=== PATIENT | female | born 1965 | race Caucasian/White ===

== ENCOUNTER → 2016-11-18 | Outpatient (CLI) | payer BC ==
[~2016-11-18] MED LIST: ASPIR LOW81 MG PO; DITROPAN 5MG TAB5 MG PO; GLUCOTROL10 M2 PO; HCTZ 25MG25 MG PO; LANTUS100 U/ML SQ; LISINOPRIL20 MG PO; METFORMIN HCL500 M2 PO; OMEPRAZOLE40 MG PO; PAXIL 30MG30 MG PEG; TUSSIONEX PENN115 ML PO
== END ==
LOC: LAB 08:23
DX: E11.9 Type 2 diabetes mellitus without complications (principal); I10 Essential (primary) hypertension

== ENCOUNTER → 2017-08-05 | Outpatient (CLI) | payer BC ==
[2016-06-11 22:44] VITALS: BP 155/85
== END ==
LOC: RAD 15:41
DX: M17.0 Bilateral primary osteoarthritis of knee (principal)

== ENCOUNTER → 2017-11-11 | Outpatient (CLI) | payer BC ==
[2016-06-11 22:44] VITALS: BP 155/85
== END ==
LOC: MAMMO 09:15 → RAD 09:15
DX: Z12.31 Encounter for screening mammogram for malignant neoplasm of breast (principal)

== ENCOUNTER → 2018-08-31 | Outpatient (CLI) | payer BC ==
[2016-06-11 22:44] VITALS: BP 155/85
== END ==
LOC: LAB 12:00
DX: Z12.11 Encounter for screening for malignant neoplasm of colon (principal); Z00.00 Encounter for general adult medical examination without abnormal findings

== ENCOUNTER → 2018-12-15 | Outpatient (CLI) | payer BC | LOC: MAMMO 08:50 | DX: Z12.31 Encounter for screening mammogram for malignant neoplasm of breast (principal) ==

== ENCOUNTER → 2019-08-13 | Outpatient (CLI) | payer BC ==
[2016-06-11 22:44] VITALS: BP 155/85
== END ==
LOC: LAB 09:42
DX: L03.116 Cellulitis of left lower limb (principal)

== ENCOUNTER → 2019-11-02 | Outpatient (REF) ==
[2016-06-11 22:44] VITALS: BP 155/85
== END ==
LOC: LAB 10-20 17:22 → EDSTATUS 06:19 → LAB 17:22
DX: L03.116 Cellulitis of left lower limb (principal)

== ENCOUNTER 2020-11-14 13:59 | Emergency (ER) | payer OTHER ==
[~2020-11-14] VITALS: Wt 162.2 kg
[~2020-11-14 13:59] MED LIST changes: -ASPIR LOW81 MG PO; +ASPIRIN E.C. 8181 MG PO; +HYDROCHLOROTHIA1 T15 PO; +INSULIN 70/3100 U/ML SQ; -LANTUS100 U/ML SQ; -LISINOPRIL20 MG PO; -OMEPRAZOLE40 MG PO; -PAXIL 30MG30 MG PEG; +PAXIL30 M2 PO; +PRILOSEC OTC20 MG PO
[2020-11-14 15:19] LABS: BASO # 0.1 (0.02-0.10); EOS # 0.3 (0.04-0.40); EOS % 2.6 % (1.0-5.0); HEMATOCRIT 34.8 % (37.0-47.0); HEMOGLOBIN 10.5 g/dL (12.5-16.0); LYMPH# 2.6 (1.50-4.00); MEAN CELL VOLUME 83 fl (78-100); MEAN CORPUSCULAR HEMOGLOBIN 25 pg (27-31); MEAN CORPUSCULAR HGB CONC 30 g/dL (33-37); MONO # 0.9 (0.20-0.80); NEU # 7.7 (1.40-6.50); PLATELET COUNT 374 K/mm3 (130-400); RED BLOOD COUNT 4.18 M/mm3 (4.10-5.30); RED CELL DISTRIBUTION WIDTH 15.5 % (11.5-14.5); WHITE BLOOD COUNT 11.6 K/mm3 (4.8-10.8)
[2020-11-14 15:28] LABS: ALBUMIN 3.3 g/dL (3.5-5.0); POTASSIUM 4.6 mmol/L (3.5-5.1)
[2020-11-14 15:29] LABS: CALCIUM 9.5 mg/dL (8.3-10.5)
[2020-11-14 15:30] LABS: TOTAL PROTEIN 6.9 g/dL (6.4-8.3)
[2020-11-14 15:32] LABS: TOTAL BILIRUBIN 0.2 mg/dL (0.2-1.2)
[2020-11-14 15:42] LABS: D-DIMER 1.47 mg/L FEU (0.15-0.50)
[2020-11-14 15:43] LABS: TROPONIN-I 0.39 ng/mL (<0.030)
[2020-11-14 16:11] LABS: ERYTHROCYTE SEDIMENTATION RATE 41 mm/hr (0-30)
[2020-11-14 16:50] LABS: URINE APPEARANCE CLEAR; URINE COLOR YELLOW
[2020-11-14 16:51] LABS: URINE BILIRUBIN NEGATIVE (NEGATIVE); URINE BLOOD NEGATIVE (NEGATIVE); URINE GLUCOSE NEGATIVE (NEGATIVE); URINE KETONE NEGATIVE (NEGATIVE); URINE LEUKOCYTE ESTERASE NEGATIVE (NEGATIVE); URINE NITRATE NEGATIVE (NEGATIVE); URINE PROTEIN(semi-quant) TRACE mg/dL (NEGATIVE); URINE UROBILINOGEN NORMAL (NORMAL); URINE WBC 0-1 /hpf (0-3)
[2020-11-14] MEDS ORDERED: VITAMIN D250 MC1 (17:39)
[2020-11-14] MEDS ORDERED: INSULIN 70/3100 U/ML SQ (17:41)
[2020-11-14] MEDS ORDERED: ESTRACE2 M1 PO (17:50)
[2020-11-14] MEDS ORDERED: LASIX40 M1 PO (17:51)
[2020-11-14] MEDS ORDERED: DAILY VITE1 TA1 PO (17:52)
[2020-11-14] MEDS ORDERED: VITAMIN D310 MC1 (17:53)
[2020-11-14] MEDS ORDERED: ASCORBIC ACID500 M3 PO (17:53)
[2020-11-14] MEDS ORDERED: MAGNESIUM400 M1 (17:54)
[2020-11-14 18:31] VITALS: BP 177/69
== END 2020-11-14 18:37 | disposition short-term general hospital (02) ==
LOC: ED 13:59
PROVIDERS: Nurse Practitioner Family
DX: J45.901 Unspecified asthma with (acute) exacerbation (principal); I10 Essential (primary) hypertension; R74.8 Abnormal levels of other serum enzymes; E11.9 Type 2 diabetes mellitus without complications; F32.9 Major depressive disorder, single episode, unspecified; F41.9 Anxiety disorder, unspecified; Z90.710 Acquired absence of both cervix and uterus; Z90.49 Acquired absence of other specified parts of digestive tract; Z79.51 Long term (current) use of inhaled steroids; Z79.82 Long term (current) use of aspirin; Z79.4 Long term (current) use of insulin
CPT/HCPCS: J7030; Q9967

== ENCOUNTER → 2021-02-16 | Outpatient (CLI) | payer OTHER ==
[~2021-02-16] MED LIST changes: +AMLODIPINE BESYL5 MG PO; +ASCORBIC ACID500 M3 PO; +ATORVASTATIN CA80 MG PO; +BUMEX 1MG TA1 MG/TA1 PO; +CARVEDILOL25 MG PO; +CEFDINIR300 MG PO; +CEPHALEXIN500 M1 PO; +DAILY VITE1 TA1 PO; +ESTRACE2 M1 PO; +LASIX40 M1 PO; +LEADER C 250 MG1 TAB PO; +MAGNESIUM OXID400 M1 PO; +MAGNESIUM400 M1; +POTASSIUM CHLO10 ME8 PO; +PRAMIPEXOLE DI0.5 MG PO; +PROAIR HFA0.09 MG/AC IH; +TRULICITY0.75 MG/0. SQ; +TRULICITY1.5 MG/0.5 SC; +TYLENOL325 M1 PO; +VITAMIN D21250 MC1 PO; +VITAMIN D310 MC1; +VITAMIN D310 MC3 PO
== END ==
LOC: RAD 15:54
DX: M25.474 Effusion, right foot (principal); M25.475 Effusion, left foot; M79.89 Other specified soft tissue disorders; M79.672 Pain in left foot

== ENCOUNTER 2021-02-22 06:28 | Inpatient (IN) | payer OTHER ==
[~2021-02-22] VITALS: Ht 162.6 cm; Wt 147.0 kg
[~2021-02-22 06:28] MED LIST changes: -AMLODIPINE BESYL5 MG PO; -ATORVASTATIN CA80 MG PO; -BUMEX 1MG TA1 MG/TA1 PO; -CARVEDILOL25 MG PO; -CEFDINIR300 MG PO; -CEPHALEXIN500 M1 PO; -LEADER C 250 MG1 TAB PO; -MAGNESIUM OXID400 M1 PO; -POTASSIUM CHLO10 ME8 PO; -PRAMIPEXOLE DI0.5 MG PO; -PROAIR HFA0.09 MG/AC IH; -TRULICITY0.75 MG/0. SQ; -TRULICITY1.5 MG/0.5 SC; -TYLENOL325 M1 PO; -VITAMIN D310 MC3 PO
[2021-02-22 12:15] LABS: BASO # 0.05 (0.02-0.10); EOS # 0.17 (0.04-0.40); EOS % 1.4 % (1.0-5.0); HEMATOCRIT 33.2 % (37.0-47.0); LYMPH# 2.38 (1.50-4.00); MEAN CELL VOLUME 79 fl (78-100); MEAN CORPUSCULAR HEMOGLOBIN 24 pg (27-31); MEAN CORPUSCULAR HGB CONC 30 g/dL (33-37); NEU # 8.29 (1.40-6.50); PLATELET COUNT 315 K/mm3 (130-400); RED CELL DISTRIBUTION WIDTH 15.8 % (11.5-14.5); WHITE BLOOD COUNT 11.7 K/mm3 (4.8-10.8)
[2021-02-22 12:35] LABS: ALBUMIN 3.4 g/dL (3.5-5.0); POTASSIUM 4.7 mmol/L (3.5-5.1)
[2021-02-22 12:38] LABS: TOTAL PROTEIN 7.1 g/dL (6.4-8.3)
[2021-02-22 12:39] LABS: TOTAL BILIRUBIN 0.4 mg/dL (0.2-1.2)
[2021-02-22 12:44] LABS: MAGNESIUM 1.09 mg/dL (1.60-2.60)
[2021-02-22 14:12] VITALS: BP 99/62
[2021-02-22] MEDS ORDERED: TYLENOL325 M1 PO (14:19)
[2021-02-22] MEDS ORDERED: AMLODIPINE BESYL5 MG PO (14:20)
[2021-02-22] MEDS ORDERED: ATORVASTATIN CA80 MG PO (14:20)
[2021-02-22] MEDS ORDERED: PROAIR HFA0.09 MG/AC IH (14:20)
[2021-02-22] MEDS ORDERED: BUMEX 1MG TA1 MG/TA1 PO (14:21)
[2021-02-22] MEDS ORDERED: CARVEDILOL25 MG PO (14:21)
[2021-02-22] MEDS ORDERED: DITROPAN 5MG TAB5 MG PO (14:27)
[2021-02-22] MEDS ORDERED: POTASSIUM CHLO10 ME8 PO (14:30)
[2021-02-22] MEDS ORDERED: PRAMIPEXOLE DI0.5 MG PO (14:31)
[2021-02-22] MEDS ORDERED: TRULICITY1.5 MG/0.5 SC (14:32)
[2021-02-22] MEDS ORDERED: LEADER C 250 MG1 TAB PO (14:35)
[2021-02-22] MEDS ORDERED: VITAMIN D310 MC3 PO (14:40)
[2021-02-22 17:54] VITALS: BP 113/61
[2021-02-22 18:04] LABS: URINE APPEARANCE CLOUDY; URINE COLOR YELLOW
[2021-02-22 18:05] LABS: URINE BILIRUBIN 2+ (NEGATIVE); URINE BLOOD TRACE (NEGATIVE); URINE GLUCOSE NEGATIVE (NEGATIVE); URINE KETONE NEGATIVE (NEGATIVE); URINE LEUKOCYTE ESTERASE TRACE (NEGATIVE); URINE NITRATE NEGATIVE (NEGATIVE); URINE PROTEIN(semi-quant) TRACE mg/dL (NEGATIVE); URINE UROBILINOGEN NORMAL (NORMAL)
[2021-02-22 22:25] VITALS: BP 147/70
[2021-02-23] VITALS (7 sets, daily range): BP systolic 97–149; BP diastolic 65–74
[2021-02-23 07:33] LABS: BASO # 0.04 (0.02-0.10); EOS # 0.19 (0.04-0.40); EOS % 1.8 % (1.0-5.0); HEMOGLOBIN 10.3 g/dL (12.5-16.0); LYMPH# 2.33 (1.50-4.00); MEAN CELL VOLUME 79 fl (78-100); MEAN CORPUSCULAR HEMOGLOBIN 24 pg (27-31); MEAN CORPUSCULAR HGB CONC 30 g/dL (33-37); MEAN PLATELET VOLUME 9.3 fl (7.4-10.4); MONO # 0.92 (0.20-0.80); NEU # 6.77 (1.40-6.50); PLATELET COUNT 299 K/mm3 (130-400); RED BLOOD COUNT 4.32 M/mm3 (4.10-5.30); RED CELL DISTRIBUTION WIDTH 16.1 % (11.5-14.5); WHITE BLOOD COUNT 10.3 K/mm3 (4.8-10.8)
[2021-02-23 07:43] LABS: CALCIUM 9.1 mg/dL (8.3-10.5)
[2021-02-23 07:50] LABS: MAGNESIUM 1.02 mg/dL (1.60-2.60)
[2021-02-23] MEDS ORDERED: TRULICITY0.75 MG/0. SQ (14:01)
[2021-02-24 02:21] VITALS: BP 123/68
[2021-02-24 06:05] VITALS: BP 134/62
[2021-02-24 06:45] LABS: CALCIUM 9.2 mg/dL (8.3-10.5)
[2021-02-24 06:52] LABS: MAGNESIUM 1.45 mg/dL (1.60-2.60)
[2021-02-24 09:13] LABS: POTASSIUM 4.9 mmol/L (3.5-5.1)
[2021-02-24 10:00] VITALS: BP 93/58
[2021-02-24] MEDS ORDERED: BUMEX 1MG TA1 MG/TA1 PO (10:14)
[2021-02-24] MEDS ORDERED: MAGNESIUM OXID400 M1 PO (10:14)
[2021-02-24] MEDS ORDERED: CEFDINIR300 MG PO (10:17)
== END 2021-02-24 13:12 | disposition home or self-care (01) | DRG 300 ==
LOC: MED/SURG 06:28
PROVIDERS: ADMIT Internal Medicine
DX: I87.2 Venous insufficiency (chronic) (peripheral) (principal); L03.116 Cellulitis of left lower limb; Z68.43 Body mass index [BMI] 50.0-59.9, adult; L03.115 Cellulitis of right lower limb; I87.8 Other specified disorders of veins; I10 Essential (primary) hypertension; I25.2 Old myocardial infarction; I25.10 Atherosclerotic heart disease of native coronary artery without angina pectoris; J45.909 Unspecified asthma, uncomplicated; E11.9 Type 2 diabetes mellitus without complications; E66.01 Morbid (severe) obesity due to excess calories; G25.81 Restless legs syndrome; M17.10 Unilateral primary osteoarthritis, unspecified knee; K21.9 Gastro-esophageal reflux disease without esophagitis; Z79.82 Long term (current) use of aspirin; Z79.84 Long term (current) use of oral hypoglycemic drugs
CPT/HCPCS: J0696; J1650; J1815; J1940; J3475

== ENCOUNTER → 2021-05-11 | Outpatient (CLI) | payer OTHER ==
[~2021-05-11] MED LIST changes: +AMLODIPINE BESYL5 MG PO; +ATORVASTATIN CA80 MG PO; +BUMEX 1MG TA1 MG/TA1 PO; +CARVEDILOL25 MG PO; +CEFDINIR300 MG PO; +CEPHALEXIN500 M1 PO; +LEADER C 250 MG1 TAB PO; +MAGNESIUM OXID400 M1 PO; +POTASSIUM CHLO10 ME8 PO; +PRAMIPEXOLE DI0.5 MG PO; +PROAIR HFA0.09 MG/AC IH; +TRULICITY0.75 MG/0. SQ; +TRULICITY1.5 MG/0.5 SC; +TYLENOL325 M1 PO; +VITAMIN D310 MC3 PO
[2021-05-11 09:21] VITALS: BP 146/61
[2021-05-11 13:35] VITALS: BP 117/48
== END ==
LOC: AMSURD 09:01
DX: Z79.899 Other long term (current) drug therapy (principal)
CPT/HCPCS: J3475

== ENCOUNTER 2021-06-29 15:50 | Emergency (ER) | payer OTHER ==
[~2021-06-29] VITALS: Ht 162.6 cm; Wt 150.0 kg
[~2021-06-29 15:50] MED LIST changes: -CEPHALEXIN500 M1 PO
[2021-06-29 16:31] LABS: BASO # 0.05 (0.02-0.10); EOS % 0.9 % (1.0-5.0); HEMATOCRIT 36.6 % (37.0-47.0); MEAN CELL VOLUME 81 fl (78-100); MEAN CORPUSCULAR HEMOGLOBIN 24 pg (27-31); MEAN CORPUSCULAR HGB CONC 30 g/dL (33-37); MEAN PLATELET VOLUME 8.8 fl (7.4-10.4); MONO # 0.77 (0.20-0.80); NEU # 8.41 (1.40-6.50); PLATELET COUNT 303 K/mm3 (130-400); RED BLOOD COUNT 4.52 M/mm3 (4.10-5.30); WHITE BLOOD COUNT 11.5 K/mm3 (4.8-10.8)
[2021-06-29 16:40] LABS: ALBUMIN 3.3 g/dL (3.5-5.0); POTASSIUM 5.3 mmol/L (3.5-5.1)
[2021-06-29 16:41] LABS: CALCIUM 10.2 mg/dL (8.3-10.5)
[2021-06-29 16:42] LABS: TOTAL PROTEIN 6.8 g/dL (6.4-8.3)
[2021-06-29 16:44] LABS: TOTAL BILIRUBIN 0.4 mg/dL (0.2-1.2)
[2021-06-29] MEDS ORDERED: CEPHALEXIN500 M1 PO (18:55)
[2021-06-29 19:25] VITALS: BP 167/67
== END 2021-06-29 19:44 | disposition home or self-care (01) ==
LOC: ED 15:50
PROVIDERS: Nurse Practitioner
DX: L03.116 Cellulitis of left lower limb (principal); L03.115 Cellulitis of right lower limb; I25.10 Atherosclerotic heart disease of native coronary artery without angina pectoris; E11.65 Type 2 diabetes mellitus with hyperglycemia; I87.2 Venous insufficiency (chronic) (peripheral); Z79.84 Long term (current) use of oral hypoglycemic drugs; Z79.82 Long term (current) use of aspirin

== ENCOUNTER → 2021-07-05 | Outpatient (CLI) | payer OTHER ==
[~2021-07-05] MED LIST changes: +CEPHALEXIN500 M1 PO
[2021-07-05 11:34] LABS: BASO # 0.06 (0.02-0.10); EOS # 0.18 (0.04-0.40); EOS % 1.5 % (1.0-5.0); HEMATOCRIT 39.5 % (37.0-47.0); HEMOGLOBIN 11.5 g/dL (12.5-16.0); LYMPH# 2.64 (1.50-4.00); MEAN CELL VOLUME 83 fl (78-100); MEAN CORPUSCULAR HEMOGLOBIN 24 pg (27-31); MEAN CORPUSCULAR HGB CONC 29 g/dL (33-37); NEU # 8.09 (1.40-6.50); PLATELET COUNT 312 K/mm3 (130-400); RED BLOOD COUNT 4.75 M/mm3 (4.10-5.30); WHITE BLOOD COUNT 11.9 K/mm3 (4.8-10.8)
[2021-07-05 11:40] LABS: POTASSIUM 4.3 mmol/L (3.5-5.1)
[2021-07-05 11:41] LABS: ALBUMIN 3.6 g/dL (3.5-5.0)
[2021-07-05 11:43] LABS: TOTAL PROTEIN 7.2 g/dL (6.4-8.3)
[2021-07-05 11:51] LABS: MAGNESIUM 1.63 mg/dL (1.60-2.60)
[2021-07-05 13:17] LABS: TOTAL BILIRUBIN 0.3 mg/dL (0.2-1.2)
== END ==
LOC: LAB 10:58
PROVIDERS: Internal Medicine
DX: L03.119 Cellulitis of unspecified part of limb (principal)

== ENCOUNTER 2021-07-13 10:41 | Outpatient (RCR) | payer OTHER ==
[2021-07-01 10:00] VITALS: BP 178/62
[2021-07-01 10:01] VITALS: BP 178/62
[2021-07-05 11:51] VITALS: BP 167/78
[2021-07-09 11:25] VITALS: BP 140/53
[~2021-07-13] VITALS: Ht 162.6 cm; Wt 150.0 kg
[2021-07-13 10:53] VITALS: BP 167/90
[2021-07-13 11:30] VITALS: BP 154/55
== END 2021-09-29 | disposition still patient (30) ==
LOC: AMSURD
DX: I87.399 Chronic venous hypertension (idiopathic) with other complications of unspecified lower extremity (principal); L97.909 Non-pressure chronic ulcer of unspecified part of unspecified lower leg with unspecified severity

== ENCOUNTER → 2021-09-17 | Outpatient (CLI) | payer OTHER ==
[2021-09-17 16:24] LABS: HEMATOCRIT 31.1 % (37.0-47.0); HEMOGLOBIN 9.5 g/dL (12.5-16.0); MEAN PLATELET VOLUME 8.9 fl (7.4-10.4); RED BLOOD COUNT 3.88 M/mm3 (4.10-5.30); RED CELL DISTRIBUTION WIDTH 14.9 % (11.5-14.5); WHITE BLOOD COUNT 9.8 K/mm3 (4.8-10.8)
[2021-09-17 16:32] LABS: ALBUMIN 3.5 g/dL (3.5-5.0); POTASSIUM 4.6 mmol/L (3.5-5.1)
[2021-09-17 16:33] LABS: CALCIUM 9.5 mg/dL (8.3-10.5)
[2021-09-17 16:34] LABS: TOTAL PROTEIN 7.6 g/dL (6.4-8.3)
[2021-09-17 16:36] LABS: TOTAL BILIRUBIN 0.3 mg/dL (0.2-1.2)
== END ==
LOC: LAB 14:55
PROVIDERS: Family Medicine
DX: Z79.899 Other long term (current) drug therapy (principal)

== ENCOUNTER 2021-09-24 09:11 | Outpatient (RCR) | payer OTHER ==
[2021-09-17 16:35] VITALS: BP 149/51
[2021-09-18 09:15] VITALS: BP 131/45
[2021-09-18 20:15] VITALS: BP 181/63
[2021-09-18 20:45] VITALS: BP 144/61
[2021-09-19 09:17] VITALS: BP 145/68
[2021-09-19 19:55] VITALS: BP 153/73
[2021-09-19 20:25] VITALS: BP 153/73
[2021-09-20 10:21] VITALS: BP 142/72
[2021-09-20 20:06] VITALS: BP 155/83
[2021-09-21 09:30] VITALS: BP 157/70
[2021-09-21 20:05] VITALS: BP 151/72
[2021-09-22 09:00] VITALS: BP 133/45
[2021-09-22 13:19] VITALS: BP 157/56
[2021-09-22 20:15] VITALS: BP 137/71
[2021-09-23 09:09] VITALS: BP 151/74
[2021-09-23 19:55] VITALS: BP 160/57
[~2021-09-24] VITALS: Ht 162.6 cm; Wt 156.8 kg
[2021-09-24 09:35] VITALS: BP 148/54
[2021-10-17] MEDS ORDERED: BUMETANIDE2 M1 PO (16:05)
[2021-10-17] MEDS ORDERED: METOLAZONE5 MG PO (16:06)
[2021-10-17] MEDS ORDERED: HYDRALAZINE HYD50 MG PO (16:07)
[2021-10-17] MEDS ORDERED: ISOSORBIDE30 MG PO (16:07)
== END 2021-11-19 | disposition home or self-care (01) ==
LOC: AMSURD
DX: L03.119 Cellulitis of unspecified part of limb (principal); I89.0 Lymphedema, not elsewhere classified
CPT/HCPCS: J0696; J3475

== ENCOUNTER 2021-10-17 15:29 | Emergency (ER) | payer OTHER ==
[2021-10-17 16:03] LABS: BASO # 0.04 K/mm3 (0.02-0.10); EOS # 0.23 K/mm3 (0.04-0.40); EOS % 1.5 % (1.0-5.0); HEMATOCRIT 37.2 % (37.0-47.0); HEMOGLOBIN 11.1 g/dL (12.5-16.0); LYMPH# 2.27 K/mm3 (1.50-4.00); MEAN CELL VOLUME 81 fl (78-100); MEAN CORPUSCULAR HEMOGLOBIN 24 pg (27-31); MEAN CORPUSCULAR HGB CONC 30 g/dL (33-37); MEAN PLATELET VOLUME 9.3 fl (7.4-10.4); MONO # 0.96 K/mm3 (0.20-0.80); NEU # 12.24 K/mm3 (1.40-6.50); PLATELET COUNT 326 K/mm3 (130-400); RED BLOOD COUNT 4.58 M/mm3 (4.10-5.30); WHITE BLOOD COUNT 15.8 K/mm3 (4.8-10.8)
[2021-10-17] MEDS ORDERED: BUMETANIDE2 M1 PO (16:05)
[2021-10-17] MEDS ORDERED: METOLAZONE5 MG PO (16:06)
[2021-10-17] MEDS ORDERED: HYDRALAZINE HYD50 MG PO (16:07)
[2021-10-17] MEDS ORDERED: ISOSORBIDE30 MG PO (16:07)
[2021-10-17 16:17] LABS: ALBUMIN 3.4 g/dL (3.5-5.0)
[2021-10-17 16:18] LABS: POTASSIUM 5.4 mmol/L (3.5-5.1)
[2021-10-17 16:19] LABS: CALCIUM 9.2 mg/dL (8.3-10.5)
[2021-10-17 16:22] LABS: TOTAL BILIRUBIN 0.3 mg/dL (0.2-1.2)
[2021-10-17 17:50] LABS: URINE APPEARANCE HAZY; URINE BILIRUBIN NEGATIVE (NEGATIVE); URINE BLOOD NEGATIVE (NEGATIVE); URINE COLOR YELLOW; URINE KETONE NEGATIVE (NEGATIVE); URINE LEUKOCYTE ESTERASE 1+ (NEGATIVE); URINE MUCUS PRESENT (NOT PRESENT); URINE NITRATE NEGATIVE (NEGATIVE); URINE PROTEIN(semi-quant) 1+ (NEGATIVE); URINE UROBILINOGEN NORMAL (NORMAL)
[2021-10-17 19:17] VITALS: BP 146/66
== END 2021-10-17 19:17 | disposition home or self-care (01) ==
LOC: ED 15:29
PROVIDERS: Physician Assistant
DX: E86.0 Dehydration (principal); E11.9 Type 2 diabetes mellitus without complications; E87.5 Hyperkalemia; D72.829 Elevated white blood cell count, unspecified; I10 Essential (primary) hypertension; I25.10 Atherosclerotic heart disease of native coronary artery without angina pectoris; F32.9 Major depressive disorder, single episode, unspecified; E66.01 Morbid (severe) obesity due to excess calories; K21.9 Gastro-esophageal reflux disease without esophagitis; I25.2 Old myocardial infarction; Z79.84 Long term (current) use of oral hypoglycemic drugs; Z79.82 Long term (current) use of aspirin; Z79.899 Other long term (current) drug therapy; Z79.4 Long term (current) use of insulin
CPT/HCPCS: J7030

== ENCOUNTER → 2021-10-22 | Outpatient (CLI) | payer OTHER ==
[~2021-10-22] MED LIST changes: +ALBUTEROL2.5 MG/3 M IH; +BUMETANIDE2 M1 PO; +DAILY VITAMIN1 EAC3 PO; +FEOSOL325 MG PO; +HYDRALAZINE HYD50 MG PO; +ISOSORBIDE30 MG PO; +MAGNESIUM400 MG PO; +METFORMIN HYD1000 MG PO; +METOLAZONE5 MG PO; +NEB MC; +NOVOLIN 70100 UNIT/1 SQ; +PETROLATUM TP; +PREDNISONE20 M1 PO; +SEPTRA DS 8001 TAB PO; +VITAMIN D21250 MCG PO; +ZITHROMAX500 M2 PO
[2021-10-22 12:43] LABS: ALBUMIN 3.1 g/dL (3.5-5.0); POTASSIUM 5.2 mmol/L (3.5-5.1)
[2021-10-22 12:44] LABS: CALCIUM 9.4 mg/dL (8.3-10.5)
[2021-10-22 12:46] LABS: TOTAL PROTEIN 6.4 g/dL (6.4-8.3)
[2021-10-22 12:47] LABS: TOTAL BILIRUBIN 0.4 mg/dL (0.2-1.2)
== END ==
LOC: LAB 12:16
PROVIDERS: Physician Assistant
DX: E87.5 Hyperkalemia (principal); D72.829 Elevated white blood cell count, unspecified

== ENCOUNTER → 2022-01-25 | Outpatient (CLI) | payer OTHER ==
[~2022-01-25] MED LIST changes: -ALBUTEROL2.5 MG/3 M IH; -METFORMIN HYD1000 MG PO; -NEB MC; -PETROLATUM TP; -PREDNISONE20 M1 PO; -ZITHROMAX500 M2 PO
== END ==
LOC: LAB 14:27
DX: I25.10 Atherosclerotic heart disease of native coronary artery without angina pectoris (principal); I89.0 Lymphedema, not elsewhere classified; E11.9 Type 2 diabetes mellitus without complications; I50.32 Chronic diastolic (congestive) heart failure; K90.9 Intestinal malabsorption, unspecified

== ENCOUNTER → 2022-02-26 | Outpatient (CLI) | payer OTHER ==
[2022-02-26 14:36] LABS: BASO # 0.06 K/mm3 (0.02-0.10); EOS # 0.29 K/mm3 (0.04-0.40); EOS % 2.3 % (1.0-5.0); HEMATOCRIT 35.3 % (37.0-47.0); HEMOGLOBIN 10.6 g/dL (12.5-16.0); LYMPH# 2.32 K/mm3 (1.50-4.00); MEAN CELL VOLUME 81 fl (78-100); MEAN CORPUSCULAR HEMOGLOBIN 24 pg (27-31); MEAN CORPUSCULAR HGB CONC 30 g/dL (33-37); MEAN PLATELET VOLUME 8.6 fl (7.4-10.4); MONO # 0.87 K/mm3 (0.20-0.80); NEU # 9.22 K/mm3 (1.40-6.50); PLATELET COUNT 359 K/mm3 (130-400); RED BLOOD COUNT 4.36 M/mm3 (4.10-5.30); RED CELL DISTRIBUTION WIDTH 15.5 % (11.5-14.5); WHITE BLOOD COUNT 12.8 K/mm3 (4.8-10.8)
[2022-02-26 14:46] LABS: ALBUMIN 3.6 g/dL (3.5-5.0); POTASSIUM 4.3 mmol/L (3.5-5.1)
[2022-02-26 14:47] LABS: CALCIUM 9.8 mg/dL (8.3-10.5)
[2022-02-26 14:48] LABS: TOTAL PROTEIN 7.4 g/dL (6.4-8.3)
[2022-02-26 14:50] LABS: TOTAL BILIRUBIN 0.3 mg/dL (0.2-1.2)
[2022-02-26 14:55] LABS: MAGNESIUM 1.95 mg/dL (1.60-2.60)
[2022-02-26 16:05] LABS: ERYTHROCYTE SEDIMENTATION RATE 59 mm/hr (0-30)
== END ==
LOC: LAB 14:21
PROVIDERS: Internal Medicine
DX: I25.10 Atherosclerotic heart disease of native coronary artery without angina pectoris (principal); I89.0 Lymphedema, not elsewhere classified; E11.9 Type 2 diabetes mellitus without complications; I50.32 Chronic diastolic (congestive) heart failure; K90.9 Intestinal malabsorption, unspecified; L03.119 Cellulitis of unspecified part of limb; E61.1 Iron deficiency

== ENCOUNTER 2022-03-03 14:49 | Outpatient (RCR) | payer OTHER ==
[~2022-03-03] VITALS: Ht 162.6 cm; Wt 156.8 kg
[~2022-03-03 14:49] MED LIST changes: -DAILY VITAMIN1 EAC3 PO; -FEOSOL325 MG PO; -MAGNESIUM400 MG PO; -NOVOLIN 70100 UNIT/1 SQ; -SEPTRA DS 8001 TAB PO; -VITAMIN D21250 MCG PO
[2022-03-03 15:08] VITALS: BP 121/46
[2022-03-03] MEDS ORDERED: SEPTRA DS 8001 TAB PO (15:16)
[2022-03-03] MEDS ORDERED: VITAMIN D21250 MCG PO (15:19)
[2022-03-03] MEDS ORDERED: FEOSOL325 MG PO (15:20)
[2022-03-03] MEDS ORDERED: MAGNESIUM400 MG PO (15:21)
[2022-03-03] MEDS ORDERED: DAILY VITAMIN1 EAC3 PO (15:23)
[2022-03-03] MEDS ORDERED: NOVOLIN 70100 UNIT/1 SQ (15:24)
== END 2022-03-19 | disposition home or self-care (01) ==
LOC: AMSURD
DX: E61.1 Iron deficiency (principal)
CPT/HCPCS: J1756

== ENCOUNTER 2022-03-26 16:43 | Emergency (ER) | payer OTHER ==
[~2022-03-26] VITALS: Ht 162.6 cm; Wt 157.7 kg
[~2022-03-26 16:43] MED LIST changes: +DAILY VITAMIN1 EAC3 PO; +FEOSOL325 MG PO; +MAGNESIUM400 MG PO; +NOVOLIN 70100 UNIT/1 SQ; +SEPTRA DS 8001 TAB PO; +VITAMIN D21250 MCG PO
[2022-03-26 17:20] LABS: BASO # 0.08 K/mm3 (0.02-0.10); EOS # 0.59 K/mm3 (0.04-0.40); EOS % 4.7 % (1.0-5.0); HEMATOCRIT 31.7 % (37.0-47.0); HEMOGLOBIN 9.4 g/dL (12.5-16.0); LYMPH# 1.98 K/mm3 (1.50-4.00); MEAN CELL VOLUME 81 fl (78-100); MEAN CORPUSCULAR HEMOGLOBIN 24 pg (27-31); MEAN CORPUSCULAR HGB CONC 30 g/dL (33-37); MEAN PLATELET VOLUME 8.9 fl (7.4-10.4); MONO # 1.11 K/mm3 (0.20-0.80); NEU # 8.66 K/mm3 (1.40-6.50); PLATELET COUNT 328 K/mm3 (130-400); RED CELL DISTRIBUTION WIDTH 16.1 % (11.5-14.5); WHITE BLOOD COUNT 12.5 K/mm3 (4.8-10.8)
[2022-03-26 17:37] LABS: ALBUMIN 3.5 g/dL (3.5-5.0); POTASSIUM 4.1 mmol/L (3.5-5.1); SODIUM 143 mmol/L (136-145)
[2022-03-26 17:39] LABS: CALCIUM 9.6 mg/dL (8.3-10.5)
[2022-03-26 17:40] LABS: TOTAL PROTEIN 6.9 g/dL (6.4-8.3)
[2022-03-26 17:41] LABS: CARBON DIOXIDE 22 mmol/L (22-29)
[2022-03-26 17:45] LABS: AST-SGOT 17 U/L (5-34)
[2022-03-26 17:46] LABS: ALT/SGPT 22 U/L (0-55)
[2022-03-26 17:54] LABS: GLUCOSE 43 mg/dL (65-105); TROPONIN-I < 0.030 ng/mL (<0.030)
[2022-03-26 18:10] LABS: TOTAL BILIRUBIN 0.4 mg/dL (0.2-1.2)
[2022-03-26] MEDS ORDERED: METFORMIN HYD1000 MG PO (20:03)
[2022-03-26 20:28] LABS: URINE APPEARANCE CLEAR; URINE BILIRUBIN NEGATIVE (NEGATIVE); URINE BLOOD NEGATIVE (NEGATIVE); URINE COLOR YELLOW; URINE GLUCOSE NEGATIVE (NEGATIVE); URINE KETONE NEGATIVE (NEGATIVE); URINE LEUKOCYTE ESTERASE NEGATIVE (NEGATIVE); URINE NITRATE NEGATIVE (NEGATIVE); URINE PROTEIN(semi-quant) TRACE (NEGATIVE); URINE UROBILINOGEN NORMAL (NORMAL); URINE WBC 0-1 /hpf (0-3)
[2022-03-26] MEDS ORDERED: ALBUTEROL2.5 MG/3 M IH (23:39)
[2022-03-26] MEDS ORDERED: ZITHROMAX500 M2 PO (23:39)
[2022-03-26] MEDS ORDERED: NEB MC (23:39)
[2022-03-26] MEDS ORDERED: PREDNISONE20 M1 PO (23:39)
[2022-03-26 23:46] VITALS: BP 169/70
== END 2022-03-27 00:02 | disposition home or self-care (01) ==
LOC: ED 16:43
PROVIDERS: Physician Assistant
DX: J45.901 Unspecified asthma with (acute) exacerbation (principal); E16.2 Hypoglycemia, unspecified; Z20.822 Contact with and (suspected) exposure to COVID-19
CPT/HCPCS: J2930

== ENCOUNTER 2022-03-31 10:17 | Outpatient (RCR) | payer OTHER ==
[~2022-03-31] VITALS: Ht 162.6 cm; Wt 157.7 kg
[~2022-03-31 10:17] MED LIST changes: +ALBUTEROL2.5 MG/3 M IH; +METFORMIN HYD1000 MG PO; +NEB MC; +PREDNISONE20 M1 PO; +ZITHROMAX500 M2 PO
[2022-03-31 10:37] VITALS: BP 180/74
[2022-03-31 11:20] VITALS: BP 180/71
== END 2022-04-18 | disposition home or self-care (01) ==
LOC: AMSURD
DX: E61.1 Iron deficiency (principal)
CPT/HCPCS: J1756

== ENCOUNTER 2022-04-30 09:25 | Outpatient (RCR) | payer OTHER ==
[~2022-04-30] VITALS: Ht 162.6 cm; Wt 157.7 kg
[2022-04-30 11:35] VITALS: BP 148/62
== END 2022-05-19 | disposition home or self-care (01) ==
LOC: AMSURD
DX: E61.1 Iron deficiency (principal)
CPT/HCPCS: J1756

== ENCOUNTER → 2022-06-04 | Outpatient (CLI) | payer OTHER ==
[~2022-06-04] VITALS: Ht 162.6 cm; Wt 157.7 kg
[2022-06-04 15:05] VITALS: BP 155/63
[2022-06-04 16:30] LABS: BASO # 0.08 K/mm3 (0.02-0.10); EOS # 0.24 K/mm3 (0.04-0.40); EOS % 2.1 % (1.0-5.0); HEMATOCRIT 36.1 % (37.0-47.0); HEMOGLOBIN 10.7 g/dL (12.5-16.0); LYMPH# 1.94 K/mm3 (1.50-4.00); MEAN CELL VOLUME 85 fl (78-100); MEAN CORPUSCULAR HEMOGLOBIN 25 pg (27-31); MEAN CORPUSCULAR HGB CONC 30 g/dL (33-37); MEAN PLATELET VOLUME 8.9 fl (7.4-10.4); MONO # 0.87 K/mm3 (0.20-0.80); NEU # 8.02 K/mm3 (1.40-6.50); PLATELET COUNT 356 K/mm3 (130-400); RED BLOOD COUNT 4.24 M/mm3 (4.10-5.30); RED CELL DISTRIBUTION WIDTH 18.1 % (11.5-14.5); WHITE BLOOD COUNT 11.2 K/mm3 (4.8-10.8)
[2022-06-04 16:37] LABS: ALBUMIN 3.9 g/dL (3.5-5.0); POTASSIUM 4.7 mmol/L (3.5-5.1)
[2022-06-04 16:38] LABS: CALCIUM 9.7 mg/dL (8.3-10.5)
[2022-06-04 16:39] LABS: TOTAL PROTEIN 7.4 g/dL (6.4-8.3)
[2022-06-04 16:41] LABS: TOTAL BILIRUBIN 0.4 mg/dL (0.2-1.2)
[2022-06-04 16:46] LABS: MAGNESIUM 1.64 mg/dL (1.60-2.60)
== END ==
LOC: AMSURD 12:18 → LAB 14:29 → AMSURD 14:29
PROVIDERS: Internal Medicine
DX: E61.1 Iron deficiency (principal)
CPT/HCPCS: J1756

== ENCOUNTER → 2022-07-02 | Outpatient (CLI) | payer OTHER ==
[~2022-07-02] VITALS: Ht 162.6 cm; Wt 157.7 kg
[2022-07-02 09:35] VITALS: BP 150/67
== END ==
LOC: AMSURD 09:05
DX: E61.1 Iron deficiency (principal)
CPT/HCPCS: J1756

== ENCOUNTER → 2022-08-27 | Outpatient (CLI) | payer OTHER ==
[~2022-08-27] VITALS: Ht 162.6 cm; Wt 157.7 kg
[2022-08-27 09:34] VITALS: BP 133/51
== END ==
LOC: AMSURD 08:58
DX: E61.1 Iron deficiency (principal)
CPT/HCPCS: J1756

== ENCOUNTER 2022-09-20 12:12 | Emergency (ER) | payer OTHER ==
[~2022-09-20] VITALS: Ht 162.6 cm; Wt 135.0 kg
[2022-09-20] MEDS ORDERED: CEPHALEXIN500 M1 PO (14:21)
[2022-09-20] MEDS ORDERED: PETROLATUM TP (14:21)
[2022-09-20 15:04] VITALS: BP 139/62
== END 2022-09-20 15:04 | disposition home or self-care (01) ==
LOC: ED 12:12
DX: L03.115 Cellulitis of right lower limb (principal); L03.116 Cellulitis of left lower limb; I89.0 Lymphedema, not elsewhere classified

== ENCOUNTER → 2022-09-24 | Outpatient (CLI) | payer OTHER ==
[~2022-09-24] VITALS: Ht 162.6 cm; Wt 135.0 kg
[~2022-09-24] MED LIST changes: +PETROLATUM TP
[2022-09-24 09:57] VITALS: BP 105/46
== END ==
LOC: AMSURD 09:25
DX: E61.1 Iron deficiency (principal)
CPT/HCPCS: J1756

== ENCOUNTER → 2022-09-26 | Outpatient (CLI) | payer OTHER | LOC: LAB 16:43 | DX: I50.32 Chronic diastolic (congestive) heart failure (principal); I25.10 Atherosclerotic heart disease of native coronary artery without angina pectoris; I89.0 Lymphedema, not elsewhere classified; K90.9 Intestinal malabsorption, unspecified; E53.8 Deficiency of other specified B group vitamins; E55.9 Vitamin D deficiency, unspecified; L03.119 Cellulitis of unspecified part of limb; N76.0 Acute vaginitis; E11.9 Type 2 diabetes mellitus without complications ==

== ENCOUNTER → 2022-11-12 | Outpatient (CLI) | payer OTHER ==
[~2022-11-12] MED LIST changes: +JARDIANCE25 MG PO; +MOUNJARO10 MG/0.5 SQ; +MOUNJARO7.5 MG/0.5 SQ
== END ==
LOC: LAB 16:44
DX: Z23 Encounter for immunization (principal); L03.116 Cellulitis of left lower limb

== ENCOUNTER 2022-11-14 14:51 | Emergency (ER) | payer OTHER ==
[2022-11-14] MEDS ORDERED: CEPHALEXIN500 M1 PO (15:02)
[2022-11-14 15:34] LABS: BASO # 0.05 K/mm3 (0.02-0.10); EOS # 0.13 K/mm3 (0.04-0.40); EOS % 1.6 % (1.0-5.0); HEMATOCRIT 33.2 % (37.0-47.0); HEMOGLOBIN 10.3 g/dL (12.5-16.0); LYMPH# 1.78 K/mm3 (1.50-4.00); MEAN CELL VOLUME 89 fl (78-100); MEAN CORPUSCULAR HEMOGLOBIN 28 pg (27-31); MEAN CORPUSCULAR HGB CONC 31 g/dL (33-37); MEAN PLATELET VOLUME 9.4 fl (7.4-10.4); MONO # 0.67 K/mm3 (0.20-0.80); PLATELET COUNT 298 K/mm3 (130-400); RED BLOOD COUNT 3.72 M/mm3 (4.10-5.30); RED CELL DISTRIBUTION WIDTH 15.7 % (11.5-14.5); WHITE BLOOD COUNT 8.3 K/mm3 (4.8-10.8)
[2022-11-14 15:46] LABS: ALBUMIN 3.5 g/dL (3.5-5.0)
[2022-11-14 15:52] LABS: POTASSIUM 3.1 mmol/L (3.5-5.1)
[2022-11-14 15:53] LABS: CALCIUM 9.6 mg/dL (8.3-10.5)
[2022-11-14 15:54] LABS: TOTAL PROTEIN 6.8 g/dL (6.4-8.3)
[2022-11-14 15:56] LABS: TOTAL BILIRUBIN 0.4 mg/dL (0.2-1.2)
[2022-11-14 17:08] VITALS: BP 154/48
== END 2022-11-14 17:07 | disposition home or self-care (01) ==
LOC: ED 14:51
PROVIDERS: Family Medicine
DX: L03.116 Cellulitis of left lower limb (principal); R60.9 Edema, unspecified; E66.9 Obesity, unspecified; N17.9 Acute kidney failure, unspecified; Z28.310 Unvaccinated for COVID-19
CPT/HCPCS: J0696

== ENCOUNTER → 2022-11-19 | Outpatient (RCR) | payer OTHER ==
[2022-11-15 12:37] VITALS: BP 156/68
[2022-11-16 12:58] VITALS: BP 128/73
[2022-11-17 14:01] VITALS: BP 115/53
[2022-11-18 17:28] VITALS: BP 118/62
[~2022-11-19] VITALS: Ht 162.6 cm; Wt 135.0 kg
[2022-11-19 14:10] VITALS: BP 107/49
== END | disposition home or self-care (01) ==
LOC: AMSURD
DX: L03.116 Cellulitis of left lower limb (principal)
CPT/HCPCS: J0696

== ENCOUNTER → 2022-11-25 | Outpatient (CLI) | payer OTHER ==
[~2022-11-25] VITALS: Ht 162.6 cm; Wt 135.0 kg
[2022-11-25 11:04] VITALS: BP 134/48
== END ==
LOC: AMSURD 09:55
DX: D64.9 Anemia, unspecified (principal)
CPT/HCPCS: J1756

== ENCOUNTER → 2022-12-20 | Outpatient (CLI) | payer OTHER ==
[~2022-12-20] MED LIST changes: +ALDACTONE50 M1 PO
[2022-12-20 12:10] LABS: BASO # 0.05 K/mm3 (0.02-0.10); EOS # 0.19 K/mm3 (0.04-0.40); EOS % 1.7 % (1.0-5.0); HEMATOCRIT 35.6 % (37.0-47.0); HEMOGLOBIN 11.2 g/dL (12.5-16.0); LYMPH# 1.71 K/mm3 (1.50-4.00); MEAN CELL VOLUME 90 fl (78-100); MEAN CORPUSCULAR HEMOGLOBIN 28 pg (27-31); MEAN CORPUSCULAR HGB CONC 32 g/dL (33-37); MEAN PLATELET VOLUME 9.7 fl (7.4-10.4); MONO # 0.72 K/mm3 (0.20-0.80); NEU # 8.44 K/mm3 (1.40-6.50); PLATELET COUNT 299 K/mm3 (130-400); RED BLOOD COUNT 3.97 M/mm3 (4.10-5.30); RED CELL DISTRIBUTION WIDTH 15.6 % (11.5-14.5); WHITE BLOOD COUNT 11.2 K/mm3 (4.8-10.8)
[2022-12-20 12:19] LABS: ALBUMIN 3.8 g/dL (3.5-5.0); POTASSIUM 4.8 mmol/L (3.5-5.1)
[2022-12-20 12:20] LABS: CALCIUM 10.9 mg/dL (8.3-10.5)
[2022-12-20 12:22] LABS: TOTAL PROTEIN 8.9 g/dL (6.4-8.3)
[2022-12-20 12:24] LABS: TOTAL BILIRUBIN 0.3 mg/dL (0.2-1.2)
[2022-12-20 12:28] LABS: MAGNESIUM 2.16 mg/dL (1.60-2.60)
[2022-12-20 13:22] LABS: ERYTHROCYTE SEDIMENTATION RATE 109 mm/hr (0-30)
== END ==
LOC: LAB 11:53
PROVIDERS: Internal Medicine
DX: I11.0 Hypertensive heart disease with heart failure (principal); I89.0 Lymphedema, not elsewhere classified; L03.119 Cellulitis of unspecified part of limb; E11.9 Type 2 diabetes mellitus without complications; K90.9 Intestinal malabsorption, unspecified; E55.9 Vitamin D deficiency, unspecified; B37.2 Candidiasis of skin and nail; E53.8 Deficiency of other specified B group vitamins

== ENCOUNTER → 2022-12-24 | Outpatient (CLI) | payer OTHER ==
[~2022-12-24] VITALS: Ht 162.6 cm; Wt 135.0 kg
[2022-12-24 11:55] VITALS: BP 115/36
[2022-12-24 12:16] LABS: ALBUMIN 3.7 g/dL (3.5-5.0)
[2022-12-24 12:17] LABS: POTASSIUM 4.6 mmol/L (3.5-5.1)
[2022-12-24 12:18] LABS: CALCIUM 10.6 mg/dL (8.3-10.5)
[2022-12-24 12:19] LABS: TOTAL PROTEIN 7.5 g/dL (6.4-8.3)
[2022-12-24 12:25] LABS: MAGNESIUM 1.61 mg/dL (1.60-2.60)
[2022-12-24 12:51] LABS: TOTAL BILIRUBIN 0.3 mg/dL (0.2-1.2)
== END ==
LOC: AMSURD 11:29
PROVIDERS: Internal Medicine
DX: I25.10 Atherosclerotic heart disease of native coronary artery without angina pectoris (principal); I89.0 Lymphedema, not elsewhere classified; E11.9 Type 2 diabetes mellitus without complications; I11.0 Hypertensive heart disease with heart failure; I50.32 Chronic diastolic (congestive) heart failure; K90.9 Intestinal malabsorption, unspecified; E53.8 Deficiency of other specified B group vitamins; E55.9 Vitamin D deficiency, unspecified; L03.119 Cellulitis of unspecified part of limb; B37.2 Candidiasis of skin and nail; E83.42 Hypomagnesemia; N17.9 Acute kidney failure, unspecified; E61.1 Iron deficiency
CPT/HCPCS: J1756

== ENCOUNTER → 2023-01-21 | Outpatient (CLI) | payer OTHER ==
[~2023-01-21] VITALS: Ht 162.6 cm; Wt 135.0 kg
[2023-01-21 10:33] VITALS: BP 111/43
== END ==
LOC: AMSURD 10:14
DX: E61.1 Iron deficiency (principal)
CPT/HCPCS: J1756

== ENCOUNTER → 2023-01-24 | Outpatient (CLI) | payer OTHER | LOC: RAD 12:44 | DX: E04.2 Nontoxic multinodular goiter (principal) ==

== ENCOUNTER → 2023-06-27 | Outpatient (CLI) | payer OTHER ==
[2023-06-27 18:53] LABS: BASO # 0.03 K/mm3 (0.02-0.10); EOS # 0.31 K/mm3 (0.04-0.40); EOS % 2.5 % (1.0-5.0); HEMATOCRIT 35.6 % (37.0-47.0); HEMOGLOBIN 11.1 g/dL (12.5-16.0); LYMPH# 1.87 K/mm3 (1.50-4.00); MEAN CELL VOLUME 89 fl (78-100); MEAN CORPUSCULAR HEMOGLOBIN 28 pg (27-31); MEAN CORPUSCULAR HGB CONC 31 g/dL (33-37); MEAN PLATELET VOLUME 9.8 fl (7.4-10.4); MONO # 0.84 K/mm3 (0.20-0.80); NEU # 9.23 K/mm3 (1.40-6.50); PLATELET COUNT 319 K/mm3 (130-400); RED BLOOD COUNT 3.99 M/mm3 (4.10-5.30); RED CELL DISTRIBUTION WIDTH 15.4 % (11.5-14.5); WHITE BLOOD COUNT 12.3 K/mm3 (4.8-10.8)
[2023-06-27 19:00] LABS: ALBUMIN 4.1 g/dL (3.5-5.0); POTASSIUM 4.3 mmol/L (3.5-5.1)
[2023-06-27 19:01] LABS: CALCIUM 10.6 mg/dL (8.3-10.5)
[2023-06-27 19:03] LABS: TOTAL PROTEIN 7.9 g/dL (6.4-8.3)
[2023-06-27 19:05] LABS: TOTAL BILIRUBIN 0.4 mg/dL (0.2-1.2)
== END ==
LOC: LAB 18:39
PROVIDERS: Nurse Practitioner Family
DX: M79.89 Other specified soft tissue disorders (principal); L03.119 Cellulitis of unspecified part of limb

== ENCOUNTER → 2023-08-14 | Outpatient (CLI) | payer OTHER ==
[2023-08-14 20:22] LABS: HEMATOCRIT 36.9 % (37.0-47.0); HEMOGLOBIN 11.6 g/dL (12.5-16.0); MEAN PLATELET VOLUME 9.7 fl (7.4-10.4); RED BLOOD COUNT 4.07 M/mm3 (4.10-5.30); RED CELL DISTRIBUTION WIDTH 14.9 % (11.5-14.5); WHITE BLOOD COUNT 10.3 K/mm3 (4.8-10.8)
[2023-08-14 20:31] LABS: CALCIUM 10.1 mg/dL (8.3-10.5)
[2023-08-14 20:32] LABS: TOTAL PROTEIN 7.8 g/dL (6.4-8.3)
[2023-08-14 20:34] LABS: TOTAL BILIRUBIN 0.4 mg/dL (0.2-1.2)
== END ==
LOC: LAB 20:01
PROVIDERS: Nurse Practitioner Family
DX: L03.119 Cellulitis of unspecified part of limb (principal); M79.89 Other specified soft tissue disorders

== ENCOUNTER → 2023-08-15 | Outpatient (CLI) | payer OTHER ==
[~2023-08-15] VITALS: Ht 162.6 cm; Wt 127.3 kg
[2023-08-15 10:27] VITALS: BP 145/67
== END ==
LOC: AMSURD 10:02
DX: E61.1 Iron deficiency (principal)
CPT/HCPCS: J1756

== ENCOUNTER → 2023-09-18 | Outpatient (CLI) | payer OTHER ==
[~2023-09-18] VITALS: Ht 162.6 cm; Wt 127.3 kg
[2023-09-18 10:23] VITALS: BP 139/53
== END ==
LOC: AMSURD 10:04
DX: E61.1 Iron deficiency (principal)
CPT/HCPCS: J1756

== ENCOUNTER → 2023-10-18 | Outpatient (CLI) | payer OTHER ==
[~2023-10-18] VITALS: Ht 162.6 cm; Wt 127.3 kg
[2023-10-18 11:58] VITALS: BP 146/59
== END ==
LOC: AMSURD 11:07
DX: E61.1 Iron deficiency (principal)
CPT/HCPCS: J1756

== ENCOUNTER → 2023-11-10 | Outpatient (CLI) | payer OTHER ==
[2023-11-10 10:49] LABS: BASO # 0.06 K/mm3 (0.02-0.10); EOS # 0.27 K/mm3 (0.04-0.40); EOS % 3.2 % (1.0-5.0); LYMPH# 1.87 K/mm3 (1.50-4.00); MEAN CELL VOLUME 91 fl (78-100); MEAN CORPUSCULAR HEMOGLOBIN 29 pg (27-31); MEAN CORPUSCULAR HGB CONC 31 g/dL (33-37); MEAN PLATELET VOLUME 9.5 fl (7.4-10.4); MONO # 0.69 K/mm3 (0.20-0.80); NEU # 5.52 K/mm3 (1.40-6.50); PLATELET COUNT 281 K/mm3 (130-400); RED BLOOD COUNT 3.83 M/mm3 (4.10-5.30); RED CELL DISTRIBUTION WIDTH 14.3 % (11.5-14.5); WHITE BLOOD COUNT 8.4 K/mm3 (4.8-10.8)
[2023-11-10 11:00] LABS: CALCIUM 9.6 mg/dL (8.3-10.5)
[2023-11-10 11:01] LABS: TOTAL PROTEIN 7.1 g/dL (6.4-8.3)
[2023-11-10 11:03] LABS: TOTAL BILIRUBIN 0.3 mg/dL (0.2-1.2)
[2023-11-10 11:08] LABS: MAGNESIUM 1.8 mg/dL (1.60-2.60)
== END ==
LOC: LAB 10:30
PROVIDERS: Internal Medicine
DX: E11.9 Type 2 diabetes mellitus without complications (principal); I10 Essential (primary) hypertension; I25.10 Atherosclerotic heart disease of native coronary artery without angina pectoris; K90.9 Intestinal malabsorption, unspecified

== ENCOUNTER → 2023-11-18 | Outpatient (CLI) | payer OTHER ==
[2023-11-18 11:00] VITALS: BP 180/73
== END ==
LOC: AMSURD 10:02
DX: E61.1 Iron deficiency (principal)
CPT/HCPCS: J1756

== ENCOUNTER 2023-11-26 21:13 | Emergency (ER) | payer OTHER ==
[2023-11-26] MEDS ORDERED: Cyclobenzaprine 10 MG TAB PO ONE (21:45)
[2023-11-26] MEDS ORDERED: CYCLOBENZ5 MG PO (21:59)
[2023-11-26 22:11] VITALS: BP 144/53
== END 2023-11-26 22:09 | disposition home or self-care (01) ==
LOC: ED 21:13
DX: S29.012A Strain of muscle and tendon of back wall of thorax, initial encounter (principal); M54.13 Radiculopathy, cervicothoracic region; X58.XXXA Exposure to other specified factors, initial encounter; Y92.59 Other trade areas as the place of occurrence of the external cause; Y99.0 Civilian activity done for income or pay

== ENCOUNTER → 2023-12-17 | Outpatient (CLI) | payer OTHER ==
[~2023-12-17] VITALS: Ht 162.6 cm; Wt 127.3 kg
[~2023-12-17] MED LIST changes: +CYCLOBENZ5 MG PO; +Iron Sucrose 200 MG in NS 100 ML Over 15 minutes IV ONE
[2023-12-17 09:33] VITALS: BP 152/70
== END ==
LOC: AMSURD 08:55
DX: E61.1 Iron deficiency (principal)
CPT/HCPCS: J1756

== ENCOUNTER → 2024-02-13 | Outpatient (CLI) | payer OTHER ==
[~2024-02-13] MED LIST changes: +COZAAR25 M1 PO; -Iron Sucrose 200 MG in NS 100 ML Over 15 minutes IV ONE
== END ==
LOC: RAD 08:43
DX: E04.1 Nontoxic single thyroid nodule (principal)

== ENCOUNTER → 2024-02-24 | Outpatient (CLI) | payer OTHER | LOC: RAD 06:35 | DX: E04.1 Nontoxic single thyroid nodule (principal) ==

== ENCOUNTER → 2024-04-12 | Outpatient (CLI) | payer OTHER ==
[~2024-04-12] VITALS: Ht 162.6 cm; Wt 127.3 kg
[~2024-04-12] MED LIST changes: +Iron Sucrose 200 MG in NS 100 ML Over 15 minutes IV ONE
[2024-04-12 10:03] VITALS: BP 183/67
[2024-04-12 10:54] VITALS: BP 154/68
== END ==
LOC: AMSURD 09:39
DX: E61.1 Iron deficiency (principal)
CPT/HCPCS: J1756

== ENCOUNTER → 2024-04-26 | Outpatient (CLI) | payer OTHER ==
[~2024-04-26] MED LIST changes: -Iron Sucrose 200 MG in NS 100 ML Over 15 minutes IV ONE
[2024-04-26 09:04] LABS: BASO # 0.05 K/mm3 (0.02-0.10); EOS # 0.25 K/mm3 (0.04-0.40); EOS % 2.9 % (1.0-5.0); HEMATOCRIT 34.2 % (37.0-47.0); HEMOGLOBIN 10.7 g/dL (12.5-16.0); LYMPH# 1.92 K/mm3 (1.50-4.00); MEAN CELL VOLUME 92 fl (78-100); MEAN CORPUSCULAR HEMOGLOBIN 29 pg (27-31); MEAN CORPUSCULAR HGB CONC 31 g/dL (33-37); MEAN PLATELET VOLUME 9.3 fl (7.4-10.4); MONO # 0.66 K/mm3 (0.20-0.80); PLATELET COUNT 244 K/mm3 (130-400); RED BLOOD COUNT 3.73 M/mm3 (4.10-5.30); RED CELL DISTRIBUTION WIDTH 13.4 % (11.5-14.5); WHITE BLOOD COUNT 8.7 K/mm3 (4.8-10.8)
[2024-04-26 09:13] LABS: ALBUMIN 3.8 g/dL (3.5-5.0)
[2024-04-26 09:15] LABS: CALCIUM 9.2 mg/dL (8.3-10.5)
[2024-04-26 09:18] LABS: TOTAL BILIRUBIN 0.4 mg/dL (0.2-1.2)
[2024-04-26 09:23] LABS: MAGNESIUM 1.83 mg/dL (1.60-2.60)
== END ==
LOC: LAB 08:41
PROVIDERS: Internal Medicine
DX: E61.1 Iron deficiency (principal); I10 Essential (primary) hypertension

== ENCOUNTER 2024-06-03 12:37 | Inpatient (IN) | payer OTHER ==
[~2024-06-03] VITALS: Ht 162.6 cm; Wt 119.6 kg
--- NOTE | 2024-06-03 13:25 | NUR ---
Pt admits to room 202 from [facility]. Is Ox4, denies pain. Reports coming in Friday for BLE cellulitis, and returned today after failed OP abx. BLE noted to have 2-3+ pitting edema, are red and warm, covered with blisters between knee and ankle. Has multiple open wounds, serous drainage noted. IV start to LAC. Labs drawn. Wound consult assessment complete. Dressing placed to BLE.
[2024-06-03 13:30] VITALS: BP 126/51
[2024-06-03] MEDS ORDERED: VANCOMYCIN IV STA (14:12)
[2024-06-03] MEDS ORDERED: NS IV STA (14:12)
[2024-06-03] MEDS ORDERED: Cefepime 1 G in Water For Injection,Sterile 10 ML IV SCH (14:15)
[2024-06-03] MEDS ORDERED: Piperacillin/Tazobactam Sodium 4.5 GM in NS 100 ML IV SCH (14:30)
[2024-06-03 14:32] LABS: BASO # 0.04 K/mm3 (0.02-0.10); EOS # 0.36 K/mm3 (0.04-0.40); EOS % 3.7 % (1.0-5.0); HEMOGLOBIN 10.9 g/dL (12.5-16.0); MEAN CELL VOLUME 90 fl (78-100); MEAN CORPUSCULAR HEMOGLOBIN 29 pg (27-31); MEAN CORPUSCULAR HGB CONC 32 g/dL (33-37); MEAN PLATELET VOLUME 9.6 fl (7.4-10.4); MONO # 0.94 K/mm3 (0.20-0.80); NEU # 6.05 K/mm3 (1.40-6.50); PLATELET COUNT 281 K/mm3 (130-400); RED BLOOD COUNT 3.76 M/mm3 (4.10-5.30); RED CELL DISTRIBUTION WIDTH 13.3 % (11.5-14.5); WHITE BLOOD COUNT 9.8 K/mm3 (4.8-10.8)
[2024-06-03 14:42] LABS: CALCIUM 9.6 mg/dL (8.3-10.5)
[2024-06-03 14:43] LABS: TOTAL PROTEIN 7.4 g/dL (6.4-8.3)
[2024-06-03 14:45] LABS: TOTAL BILIRUBIN 0.3 mg/dL (0.2-1.2)
[2024-06-03] MEDS ORDERED: TYLENOL 325MG325 MG PO ×2 (14:45→14:46)
[2024-06-03] MEDS ORDERED: ASPIRIN E.C. 8181 MG (14:48)
[2024-06-03] MEDS ORDERED: BUMETANIDE2 M1 PO (14:49)
[2024-06-03] MEDS ORDERED: VITAMIN B-121000 MC2 PO (14:51)
[2024-06-03] MEDS ORDERED: FLONASE ALLERG9.9 ML NS (14:53)
[2024-06-03] MEDS ORDERED: MAGNESIUM400 MG PO (14:55)
[2024-06-03] MEDS ORDERED: MOUNJARO15 MG/0.5 SQ (14:56)
[2024-06-03] MEDS ORDERED: MUPIROCIN22 TP (14:58)
[2024-06-03] MEDS ORDERED: NOVOLIN 70100 UNIT/1 SQ ×2 (15:00)
[2024-06-03] MEDS ORDERED: VANCOMYCIN IV SCH (15:00)
[2024-06-03] MEDS ORDERED: NS IV SCH (15:00)
[2024-06-03] MEDS ORDERED: KLOR-CON 1010 MEQ PO (15:06)
[2024-06-03] MEDS ORDERED: TRIAMCINOLONE A80 GM TP (15:17)
[2024-06-03] MEDS ORDERED: CYCLOBENZ5 MG PO (15:19)
[2024-06-03] MEDS ORDERED: Dextrose (Glucose) 15 GM (4 x 3.75 GM) Chewable TAB PACK PO PRN (15:30)
[2024-06-03] MEDS ORDERED: Cyclobenzaprine 10 MG TAB PO PRN (15:30)
[2024-06-03] MEDS ORDERED: Dextrose 50% Water 25 GM/50 ML SYRINGE IV PRN (15:30)
[2024-06-03] MEDS ORDERED: Glucagon 1 MG VIAL IM PRN (15:30)
[2024-06-03] MEDS ORDERED: Miconazole 2% Topical Powder BOTTLE TP SCH (15:45)
[2024-06-03] MEDS ORDERED: Albuterol 90 MCG/PUFF MDI IH PRN (15:45)
[2024-06-03] MEDS ORDERED: Albuterol 0.083% Nebule (2.5 MG/3 ML) IH PRN (15:45)
[2024-06-03] MEDS ORDERED: Acetaminophen 325 MG TAB PO PRN (15:45)
[2024-06-03 16:00] VITALS: BP 160/62
--- NOTE | 2024-06-03 16:42 | NUR ---
Wound Care Note: Pt is admitted for bilat lower extremity cellulitis. Pt has history of lymphedema and has been seen by Physical Therapy at an [place] location on [facility] in the past. States they got her in touch with "[employer]" who gave her some pneumatic compression device to wear at home but it now has a hole and has not been usable for the past few months. She states she still owes money on it and got behind on payments, so cannot get another one until she pays off the first one. BLE are very taunt, edematous, and erythematous. Has "bumpy" skin from knees to ankles and has now developed weeping blisters over the past week, with multiple open sores where blisters have broken. Pt signed consent for photography and photos and measurements of BLE wounds were taken. Cultures were obtained from wounds on each leg upon admission. Awaiting results. BLE were scrubbed with hibiclens and sterile water, then irrigated with sterile water and patted dry with 4x4's. HOrizontal row of Open wounds on Rt anterior lower leg. Wound on far left measured 1.45cm x 0.4cm . Wound on far right measured 1.3cm x 0.8cm. Scattered wounds on left anterior lower leg. See measurements for right lower leg on photos in paper chart. Open wounds were covered with optilock on larger weeping wounds and aquacel on the smaller weeping wounds. 2 layer wraps placed on BLE for compression. Will follow up with pt tomorrow.
[2024-06-03 16:54] LABS: PH-URINE 5.5 (5.0 - 8.0); URINE APPEARANCE CLEAR (CLEAR); URINE BILIRUBIN NEGATIVE (NEGATIVE); URINE BLOOD NEGATIVE (NEGATIVE); URINE COLOR YELLOW (YELLOW); URINE GLUCOSE 2+ (NEGATIVE); URINE KETONE NEGATIVE (NEGATIVE); URINE LEUKOCYTE ESTERASE NEGATIVE (NEGATIVE); URINE NITRATE NEGATIVE (NEGATIVE); URINE PROTEIN(semi-quant) NEGATIVE (NEGATIVE)
[2024-06-03] MEDS ORDERED: metFORMIN 500 MG TAB PO SCH (17:00)
[2024-06-03] MEDS ORDERED: Insulin Aspart (NovoLOG) SQ SCH (17:00)
[2024-06-03] MEDS ORDERED: Magnesium Oxide 400 MG TAB PO SCH (17:00)
[2024-06-03] MEDS ORDERED: Carvedilol 6.25 MG TAB PO SCH (17:00)
[2024-06-03 18:00] VITALS: BP 130/62
--- NOTE | 2024-06-03 18:24 | NUR ---
Rec'd report from lab, Cr Glucose 45. Pt continues on serial hourly fsbs. 1800 bs 110. Held HS Metformin per provider instruction. Discussed plan with pt, she acknowledges understanding.
--- NOTE | 2024-06-03 19:14 | NUR ---
recieved report from andrey mckeon
[2024-06-03] MEDS ORDERED: Oxybutynin 5 MG TAB PO SCH (21:00)
[2024-06-03] MEDS ORDERED: Insulin NPH/REG (NovoLIN 70/30) SQ SCH (21:00)
[2024-06-03] MEDS ORDERED: Triamcinolone 0.1% Cream 15 GM TUBE TP SCH (21:00)
[2024-06-03 22:15] VITALS: BP 157/61
--- NOTE | 2024-06-03 23:01 | NUR ---
pt alert and oriented x4, pt resting in bed with dressings in place bilaterally below the knee. pt reports no pain at this time, pt very tired and ready for bed. pt assessed and medications delivered without complication. mike pt has medication infusing at 25 ml/hr to left ac iv. pt resting in bed with call light in reach, bed alarmed. pt denies any further needs at this time
[2024-06-04 02:04] VITALS: BP 147/63
[2024-06-04 05:59] VITALS: BP 134/66
[2024-06-04 06:27] LABS: BASO # 0.05 K/mm3 (0.02-0.10); EOS # 0.26 K/mm3 (0.04-0.40); EOS % 2.9 % (1.0-5.0); HEMATOCRIT 29.7 % (37.0-47.0); HEMOGLOBIN 9.5 g/dL (12.5-16.0); LYMPH# 2.21 K/mm3 (1.50-4.00); MEAN CELL VOLUME 92 fl (78-100); MEAN CORPUSCULAR HEMOGLOBIN 30 pg (27-31); MEAN CORPUSCULAR HGB CONC 32 g/dL (33-37); MEAN PLATELET VOLUME 9.8 fl (7.4-10.4); MONO # 0.77 K/mm3 (0.20-0.80); NEU # 5.71 K/mm3 (1.40-6.50); PLATELET COUNT 206 K/mm3 (130-400); RED BLOOD COUNT 3.22 M/mm3 (4.10-5.30); RED CELL DISTRIBUTION WIDTH 13.4 % (11.5-14.5)
[2024-06-04 06:35] LABS: ALBUMIN 3.1 g/dL (3.5-5.0)
[2024-06-04 06:38] LABS: TOTAL PROTEIN 5.9 g/dL (6.4-8.3)
[2024-06-04 06:39] LABS: TOTAL BILIRUBIN 0.4 mg/dL (0.2-1.2)
--- NOTE | 2024-06-04 07:51 | NUR ---
REPORT FROM SEVEN HDZ. PT. UP IN CHAIR THIS AM. DENIES ANY NEEDS OR CONCERNS, STATES SHE DID NOT SLEEP WELL. BOTH LEGS WRAPPED AT THIS TIME. UNABLE TO ASSESS FOR DVT OR PEDAL PULSES DUE TO DRSGS.
[2024-06-04] MEDS ORDERED: Insulin NPH/REG (NovoLIN 70/30) SQ SCH (08:00)
[2024-06-04] MEDS ORDERED: Triamcinolone 0.1% Cream 15 GM TUBE TP PRN (08:22)
[2024-06-04] MEDS ORDERED: Fluticasone Nasal 50 MCG/Spray 16 GM BOTTLE NS PRN (08:30)
[2024-06-04] MEDS ORDERED: Losartan 25 MG TAB PO SCH (09:00)
[2024-06-04] MEDS ORDERED: PARoxetine HCl 10 MG TAB PO SCH (09:00)
[2024-06-04] MEDS ORDERED: Fluticasone Nasal 50 MCG/Spray 16 GM BOTTLE NS SCH (09:00)
[2024-06-04] MEDS ORDERED: Bumetanide 1 MG TAB PO SCH (09:00)
[2024-06-04] MEDS ORDERED: Empagliflozin 10 MG TAB PO SCH (09:00)
[2024-06-04 09:16] VITALS: BP 158/63
[2024-06-04 14:37] VITALS: BP 154/60
[2024-06-04 17:30] VITALS: BP 139/57
--- NOTE | 2024-06-04 18:06 | NUR ---
WOUND CARE TO BILATERAL LOWER LEGS DONE BY SEVEN AIKEN. PLAN TO KEEP WRAPS ON OVER THE WEEKEND UNLESS THEY GET SOILED. PT. INSTRUCTED AND VERBALIZES UNDERSTANDING. UNDER ABD. FOLD CLEANED AND DRY AND MEDICATED POWDER APPLIED. PT. HAS BEEN UP IN CHAIR MOST OF THE DAY.
[2024-06-04 21:19] VITALS: BP 115/64
[2024-06-05 02:14] VITALS: BP 138/63
[2024-06-05 05:54] VITALS: BP 150/65
--- NOTE | 2024-06-05 08:43 | NUR ---
Rekha is sitting up in chair eating breakfast. A&Ox4, RA, no c/o pain or discomfort. Reports she slept well last night. Swallowed pills whole with water. Chair in locked position. Call light within reach.
[2024-06-05] MEDS ORDERED: Empagliflozin 25 MG TAB PO SCH (09:00)
[2024-06-05 09:21] VITALS: BP 150/72
[2024-06-05 13:55] VITALS: BP 156/75
[2024-06-05 15:57] LABS: CALCIUM 9.6 mg/dL (8.3-10.5)
--- NOTE | 2024-06-05 16:30 | NUR ---
Vanc trough 35.3, critical high. Attempted to call pharmacy in [place] x[place] with no answer. Findings reported to Frank Zapien MD. HOLD at this time. Will continue to contact pharmacy with results.
[2024-06-05 17:26] VITALS: BP 153/71
--- NOTE | 2024-06-05 18:41 | NUR ---
Called pharmacy at [facility] to report Vanc trough 35.3. Unable to reach staff.
--- NOTE | 2024-06-05 19:02 | NUR ---
report received from kim mckeon
--- NOTE | 2024-06-05 19:03 | NUR ---
attempt made to call pharmacy to discuss vancomyocin critical high, no answer and no voicemail available
--- NOTE | 2024-06-05 19:37 | NUR ---
provider minges notified of critical high dose of vancomyocin, ordered to hold 4 am dose. repeat back for confirmation
--- NOTE | 2024-06-05 20:51 | NUR ---
pt alert and oriented x4, pt currently resting in chair with family at bedside. pt accidentally got urine on her dressings, outer layer of compression affected, compression wrap changed. pt has up ad austen orders. pt assessed and medications delivered without complication. pt blood sugar does not require correction, pt resting in chair with call light in reach and at bedside pt denies any furhter needs or questions
[2024-06-05 21:55] VITALS: BP 131/64
[2024-06-06 01:59] VITALS: BP 145/73
[2024-06-06 05:54] VITALS: BP 151/67
--- NOTE | 2024-06-06 07:08 | NUR ---
report given to andrey mckeon
[2024-06-06 09:54] VITALS: BP 137/81
--- NOTE | 2024-06-06 12:26 | NUR ---
Per report this AM, pt possible d/c today. Removed BLE dressings to obtain photo documentation of healing prior to d/c and so pt could take requested shower. All prior wounds appear as per previous photos. LE edema improved, no fluid remains in blisters, outer layer skin shrunken and firm. Pt showered, vaseline applied to intact skin, placed absorbant dressing to open wounds on upper anterior perez, where most prominent areas of drainage located. Wrapped BLE with 2 part compression dressing. Pt denies dressings feeling too tight or decreased sensation No discoloration of toes, cap refill <3 seconds. Instructed pt to notify staff with any changes in color or feeling in BLE.
[2024-06-06 13:32] VITALS: BP 131/62
[2024-06-06 17:55] VITALS: BP 147/61
--- NOTE | 2024-06-06 18:46 | NUR ---
report recieved from andrey mckeon
--- NOTE | 2024-06-06 20:53 | NUR ---
pt alert and oriented x4, pt currently resting in chair after returning from a walk with her . pt has up ad austen orders. pt denies any pain at this time, pt reports a mild upset stomach but denied needing any intervention. bowel sounds active and most recent bowel movement was today. pt asssessed an medications delivered without complications. pt now resting in bed with call light in reach and no furhter needs expressed.
[2024-06-06 21:29] VITALS: BP 109/66
[2024-06-07 02:17] VITALS: BP 131/64
[2024-06-07 05:24] VITALS: BP 138/62
[2024-06-07] MEDS ORDERED: Amoxicillin/Clavulanate K+ 875/125 MG TAB PO SCH (08:09)
[2024-06-07 10:00] VITALS: BP 110/54
--- NOTE | 2024-06-07 13:30 | NUR ---
Wound Care: Removed 2 layer compression wraps from [facility] this morning. Edema appears significantly less. Only 3 open and draining areas on left lower leg. Small open areas on right leg have scabbed over. Only minimal drainage noted on old dressings when removed. HOwever, pt states that wraps and dressings were changed yesterday so she could shower. Pt showered while wraps were off this morning. Then Angelina from [employer] spoke with patient about helping her to obtain compression garments that will work for her. Checking with insurance to see what will be covered. Wounds on left lower leg were covered with misti collagen and Optilock dressings and secured in place with a small amount of soft roll jann. Then applied the 2 layer compression wraps. present and helped in case he has to do them at home sometime. Explained how to check for cap refill in toes after wrapping legs to make sure she has good circulation. Verbalized understanding. Instructed patient to return for Outpatient wound care on Fri06/09/24. Sent home some extra optilock dressings and LORENZO bandages in case the current wraps get wet or have to be taken off prior to appt on Fri. Pt has appointment with lymphedema specialist in [place] in June. Stressed importance of continuing to go to these appointments on a regular basis. Pt verbalized understanding. Also aware that she needs to keep legs/feet elevated as much as possible. roll jann wrap.
[2024-06-07 14:00] VITALS: BP 152/81
[2024-06-07] MEDS ORDERED: AMOXICILLIN AND1 TA2 PO (14:54)
--- NOTE | 2024-06-07 16:43 | NUR ---
PATIENT DISCHARGED WITH SPOUSE AT 1630. SHE LEFT WILL ALL PERSONAL BELONGINGS. PATIENT VOICED UNDERSTANDING OF DISCHARGE INSTRUCTIONS. SHE WILL CONTINUE OUTPATIENT SERVICES FOR WOUND CARE. SHE WILL RETURN THIS WED FOR A DRESSING CHANGE. SHE AMBULATED WITH 3 WHEELED WALKER WITH STAFF TO VEHICLE.
== END 2024-06-07 16:30 | disposition home or self-care (01) | DRG 603 ==
LOC: MED/SURG 12:37
PROVIDERS: Family Medicine; ADMIT Nurse Practitioner
DX: L03.116 Cellulitis of left lower limb (principal); K90.9 Intestinal malabsorption, unspecified; L03.115 Cellulitis of right lower limb; I89.0 Lymphedema, not elsewhere classified; E11.649 Type 2 diabetes mellitus with hypoglycemia without coma; Z79.4 Long term (current) use of insulin; I10 Essential (primary) hypertension; I25.10 Atherosclerotic heart disease of native coronary artery without angina pectoris; B37.9 Candidiasis, unspecified; D64.9 Anemia, unspecified; J45.909 Unspecified asthma, uncomplicated; K21.9 Gastro-esophageal reflux disease without esophagitis; G25.81 Restless legs syndrome; F32.A Depression, unspecified; M19.90 Unspecified osteoarthritis, unspecified site
CPT/HCPCS: A9270; J1650; J1815; J2543; J3370; J7050

== ENCOUNTER → 2024-08-06 | Outpatient (CLI) | payer OTHER ==
[~2024-08-06] MED LIST changes: +AMOXICILLIN AND1 TA2 PO; +ASPIRIN E.C. 8181 MG; +FLONASE ALLERG9.9 ML NS; +KLOR-CON 1010 MEQ PO; +MOUNJARO15 MG/0.5 SQ; +MUPIROCIN22 TP; +TRIAMCINOLONE A80 GM TP; +TYLENOL 325MG325 MG PO; +VITAMIN B-121000 MC2 PO
[2024-08-06 10:09] LABS: BASO # 0.02 K/mm3 (0.02-0.10); EOS # 0.26 K/mm3 (0.04-0.40); EOS % 3.2 % (1.0-5.0); HEMATOCRIT 38.1 % (37.0-47.0); HEMOGLOBIN 11.7 g/dL (12.5-16.0); LYMPH# 1.93 K/mm3 (1.50-4.00); MEAN CELL VOLUME 93 fl (78-100); MEAN CORPUSCULAR HEMOGLOBIN 28 pg (27-31); MEAN CORPUSCULAR HGB CONC 31 g/dL (33-37); MEAN PLATELET VOLUME 9.2 fl (7.4-10.4); MONO # 0.58 K/mm3 (0.20-0.80); NEU # 5.32 K/mm3 (1.40-6.50); PLATELET COUNT 265 K/mm3 (130-400); RED BLOOD COUNT 4.12 M/mm3 (4.10-5.30); RED CELL DISTRIBUTION WIDTH 13.5 % (11.5-14.5); WHITE BLOOD COUNT 8.1 K/mm3 (4.8-10.8)
[2024-08-06 10:14] LABS: ALBUMIN 4.1 g/dL (3.5-5.0)
[2024-08-06 10:15] LABS: CALCIUM 9.6 mg/dL (8.3-10.5)
[2024-08-06 10:16] LABS: TOTAL PROTEIN 7.6 g/dL (6.4-8.3)
[2024-08-06 10:18] LABS: TOTAL BILIRUBIN 0.5 mg/dL (0.2-1.2)
[2024-08-06 10:24] LABS: MAGNESIUM 2.21 mg/dL (1.60-2.60)
== END ==
LOC: LAB 09:52
PROVIDERS: Internal Medicine
DX: I10 Essential (primary) hypertension (principal); I25.10 Atherosclerotic heart disease of native coronary artery without angina pectoris; E61.1 Iron deficiency; E11.9 Type 2 diabetes mellitus without complications

== ENCOUNTER → 2024-08-12 | Outpatient (CLI) | payer OTHER | LOC: MAMMO 14:11 | DX: Z12.39 Encounter for other screening for malignant neoplasm of breast (principal) ==

== ENCOUNTER → 2024-11-05 | Outpatient (CLI) | payer OTHER ==
[~2024-11-05] VITALS: Ht 162.6 cm; Wt 119.6 kg
[~2024-11-05] MED LIST changes: +BACTRIM 400 MG-1 TA1 PO
[2024-11-05 13:10] VITALS: BP 180/80
== END ==
LOC: AMSURD 08-20 00:01 → EDSTATUS 08-20 12:45 → WOUND 12:46 → LAB 12:46
DX: S81.802A Unspecified open wound, left lower leg, initial encounter (principal)
CPT/HCPCS: 18894; 18897; A6452

== ENCOUNTER → 2024-11-05 | Outpatient (CLI) | payer OTHER ==
[2024-11-05 12:41] LABS: BASO # 0.03 K/mm3 (0.02-0.10); EOS # 0.22 K/mm3 (0.04-0.40); EOS % 2.9 % (1.0-5.0); HEMATOCRIT 40.6 % (37.0-47.0); HEMOGLOBIN 12.7 g/dL (12.5-16.0); LYMPH# 2.11 K/mm3 (1.50-4.00); MEAN CELL VOLUME 89 fl (78-100); MEAN CORPUSCULAR HEMOGLOBIN 28 pg (27-31); MEAN CORPUSCULAR HGB CONC 31 g/dL (33-37); MEAN PLATELET VOLUME 9.4 fl (7.4-10.4); MONO # 0.66 K/mm3 (0.20-0.80); NEU # 4.61 K/mm3 (1.40-6.50); PLATELET COUNT 282 K/mm3 (130-400); RED BLOOD COUNT 4.55 M/mm3 (4.10-5.30); RED CELL DISTRIBUTION WIDTH 13.4 % (11.5-14.5); WHITE BLOOD COUNT 7.7 K/mm3 (4.8-10.8)
[2024-11-05 12:43] LABS: ALBUMIN 4.1 g/dL (3.5-5.0)
[2024-11-05 12:45] LABS: CALCIUM 9.6 mg/dL (8.3-10.5)
[2024-11-05 12:46] LABS: TOTAL PROTEIN 7.5 g/dL (6.4-8.3)
[2024-11-05 12:48] LABS: TOTAL BILIRUBIN 0.4 mg/dL (0.2-1.2)
[2024-11-05 12:52] LABS: MAGNESIUM 1.8 mg/dL (1.60-2.60)
== END ==
LOC: LAB 12:25
PROVIDERS: Internal Medicine
DX: I10 Essential (primary) hypertension (principal); E11.9 Type 2 diabetes mellitus without complications; K90.9 Intestinal malabsorption, unspecified

== ENCOUNTER → 2024-11-09 | Outpatient (CLI) | payer OTHER ==
[~2024-11-09] VITALS: Ht 162.6 cm; Wt 119.6 kg
[2024-11-09 13:24] VITALS: BP 162/74
--- NOTE | 2024-11-09 13:25 | NUR ---
PATIENT HERE FOR WOUND CARE TO [facility]. REPORTS STARTING BACTRIM DS FROM PCP DR GUILLEN TODAY, UNKNOWN DOSE. REPORTS TWICE A DAY FOR 10 DAYS. AWAITING WOUND CULTURE. COBAN 2 LAYER SYSTEM REMOVED, BLE CLEANSED WITH HIBICLENSE AND DEBRISOFT LOLLI. JET LAVAGE. MEASUREMENTS AND PHOTOGRAPHS TAKEN. XERFORM PLACED TO WOUND BEDS, MEPTITEL, OPTILOCK, AND SOFT ROLL PLACED ON TOP. COBAN 2 LAYER SYSTEM APPLIED. PATIENT SCHEDULED FOR FRIDAY DRESSING CHANGE.
== END ==
LOC: WOUND 13:02
DX: I87.313 Chronic venous hypertension (idiopathic) with ulcer of bilateral lower extremity (principal); I89.0 Lymphedema, not elsewhere classified
CPT/HCPCS: 18894; 18897; A6452

== ENCOUNTER → 2024-11-12 | Outpatient (CLI) | payer OTHER ==
[~2024-11-12] VITALS: Ht 162.6 cm; Wt 119.6 kg
[2024-11-12 12:13] VITALS: BP 160/80
--- NOTE | 2024-11-12 12:23 | NUR ---
PT HERE FOR WOUND CARE TO BLE. STATES SHE REMOVED THE COBAN COMPRESSION WRAP FROM RT LEG ON FRI DUE TO IT FALLING DOWN AND ITCHING, CAUSING ABRASIONS TO UPPER RT CRAWFORD. THE LEFT COBAN WRAP STAYED ON TIL TODAY. WOUNDS ON LEFT CRAWFORD ARE WET BUT WOUND BED IS RED AND BEEFY. SLIGHT MACERATION NOTED TODAY. K MARYING IN TO DEBRIDE A LITTLE TODAY. CHANGING TO MEPITEL ON RT LL ABRASIONS AND COLLAGEN, AQUACEL EXTRA AND MEDIPORE TAPE TO WOUND ON LLL. ATRAC TAIN LOTION APPLIED TO BLE FOR DRYNESS AND ITCHING. WRAPPED BLL WITH COBAN 2 COMPRESSION WRAPS. PT WILL RETURN ON FRIDAY .
== END ==
LOC: WOUND 11:43
DX: I89.0 Lymphedema, not elsewhere classified (principal); I87.313 Chronic venous hypertension (idiopathic) with ulcer of bilateral lower extremity
CPT/HCPCS: 18894; 18895; 18897; 19899; A6021; A6452

== ENCOUNTER → 2024-11-16 | Outpatient (CLI) | payer OTHER ==
[~2024-11-16] VITALS: Ht 162.6 cm; Wt 119.6 kg
[2024-11-16 14:59] VITALS: BP 184/62
--- NOTE | 2024-11-16 15:05 | NUR ---
PT HERE FOR WOUND CARE TO BLE FOR LYMPHEDEMA AND WOUNDS ON LEFT LOWER LEG. PRESENTS TODAY WITH ONLY THE ONE COMPRESSION WRAP STILL ON HER LEFT LOWER LEG. STATES THE RIGHT LEG WRAP CAME OFF THIS MORNING IT WAS FALLING DOWN. STATES SHE HAS BEEN USING HER PNEUMATIC COMPRESSION DEVICE AT HOME DAILY EXCEPT FOR FRIDAY, SINCE LAST VISIT. CLEANED LEFT LEG WOUND WITH HIBICLENS AND DEBRISOFT LOLLY. JET LAVAGED WITH STERILE WATER AND DRIED WITH 4X4'S. ATRAC-TAIN APPLIED TO BLL. APPLIED COLLAGEN, AQUACEL EXTRA AND MEDIPORE TAPE OVER WOUND ON LLL. PICTURES AND MEASUREMENTS DONE TODAY. WOUND ON LEFT CRAWFORD IS 1.0 LONG X 2.2 WIDE. SUPERFICIAL WOUND BED IS BEEFY RED. NO SLOUGH. COBAN 2 COMPRESSION WRAPS APPLIED BLL. PT ORD WELL.
== END ==
LOC: WOUND 14:01
DX: I89.0 Lymphedema, not elsewhere classified (principal); I87.313 Chronic venous hypertension (idiopathic) with ulcer of bilateral lower extremity
CPT/HCPCS: 18894; 18897; A6452

== ENCOUNTER 2024-11-19 12:21 | Inpatient (IN) | payer OTHER ==
[~2024-11-19] VITALS: Ht 162.6 cm; Wt 118.5 kg
[2024-11-19 13:05] LABS: BASO # 0.05 K/mm3 (0.02-0.10); EOS # 0.37 K/mm3 (0.04-0.40); EOS % 4.2 % (1.0-5.0); HEMATOCRIT 37.9 % (37.0-47.0); HEMOGLOBIN 11.9 g/dL (12.5-16.0); LYMPH# 2.29 K/mm3 (1.50-4.00); MEAN CELL VOLUME 87 fl (78-100); MEAN CORPUSCULAR HEMOGLOBIN 27 pg (27-31); MEAN CORPUSCULAR HGB CONC 31 g/dL (33-37); MEAN PLATELET VOLUME 9.4 fl (7.4-10.4); MONO # 0.69 K/mm3 (0.20-0.80); NEU # 5.39 K/mm3 (1.40-6.50); PLATELET COUNT 236 K/mm3 (130-400); RED BLOOD COUNT 4.34 M/mm3 (4.10-5.30); RED CELL DISTRIBUTION WIDTH 13.1 % (11.5-14.5); WHITE BLOOD COUNT 8.8 K/mm3 (4.8-10.8)
[2024-11-19 13:08] LABS: ALBUMIN 3.8 g/dL (3.5-5.0)
[2024-11-19 13:10] LABS: CALCIUM 9.2 mg/dL (8.3-10.5)
[2024-11-19 13:11] LABS: TOTAL PROTEIN 7.4 g/dL (6.4-8.3)
[2024-11-19 13:13] LABS: TOTAL BILIRUBIN 0.3 mg/dL (0.2-1.2)
[2024-11-19 13:20] LABS: D-DIMER 0.91 mg/L FEU (0.15-0.50)
[2024-11-19] MEDS ORDERED: Insulin Human Regular (NovoLIN R) IV ONE (13:30)
[2024-11-19] MEDS ORDERED: Albuterol 0.083% Nebule (2.5 MG/3 ML) IH ONE (13:30)
[2024-11-19] MEDS ORDERED: Bumetanide 1 MG/4 ML VIAL IV ONE ×2 (13:30→16:45)
[2024-11-19] MEDS ORDERED: Calcium Gluconate 1,000 MG (4.65 mEq)/10 ML VIAL IV ONE (13:30)
[2024-11-19] MEDS ORDERED: hydrALAZINE 20 MG/ML 1 ML VIAL IV ONE ×3 (13:30→15:00)
[2024-11-19] MEDS ORDERED: Dextrose 50% Water 25 GM/50 ML SYRINGE IV ONE (13:30)
[2024-11-19 15:15] VITALS: BP 135/59
[2024-11-19 15:43] LABS: CALCIUM 10.3 mg/dL (8.3-10.5)
[2024-11-19] MEDS ORDERED: Polyethylene Glycol 3350 Powder 17 GM PACKET PO PRN (16:30)
[2024-11-19] MEDS ORDERED: Acetaminophen 325 MG TAB PO PRN (16:30)
[2024-11-19] MEDS ORDERED: Dextrose 50% Water 25 GM/50 ML SYRINGE IV PRN (16:45)
[2024-11-19] MEDS ORDERED: Dextrose (Glucose) 15 GM (4 x 3.75 GM) Chewable TAB PACK PO PRN (16:45)
[2024-11-19] MEDS ORDERED: Albuterol 90 MCG/PUFF MDI IH PRN (16:45)
[2024-11-19] MEDS ORDERED: hydrALAZINE 20 MG/ML 1 ML VIAL IV PRN (16:45)
[2024-11-19] MEDS ORDERED: Glucagon 1 MG VIAL IM PRN (16:45)
[2024-11-19] MEDS ORDERED: Magnesium Oxide 400 MG TAB PO SCH (17:00)
[2024-11-19] MEDS ORDERED: Insulin Lispro (HumaLOG) SQ SCH (17:00)
[2024-11-19] MEDS ORDERED: Carvedilol 6.25 MG TAB PO SCH (17:00)
[2024-11-19] MEDS ORDERED: Miconazole 2% Topical Powder BOTTLE TP SCH (18:29)
[2024-11-19 19:00] VITALS: BP 184/62
[2024-11-19] MEDS ORDERED: Docusate Sodium 100 MG CAP PO SCH (21:00)
[2024-11-19] MEDS ORDERED: Atorvastatin 80 MG TAB PO SCH (21:00)
[2024-11-19] MEDS ORDERED: Insulin NPH/REG (NovoLIN 70/30) SQ SCH (21:00)
[2024-11-19] MEDS ORDERED: Oxybutynin 5 MG TAB PO SCH (21:00)
[2024-11-19] MEDS ORDERED: metFORMIN 500 MG TAB PO SCH (21:00)
[2024-11-19 22:18] VITALS: BP 155/62
[2024-11-20 03:00] VITALS: BP 165/50
[2024-11-20] MEDS ORDERED: Bumetanide 1 MG/4 ML VIAL IV SCH (07:00)
[2024-11-20] MEDS ORDERED: Insulin NPH/REG (NovoLIN 70/30) SQ SCH (07:00)
[2024-11-20 07:14] LABS: BASO # 0.04 K/mm3 (0.02-0.10); EOS % 2.4 % (1.0-5.0); HEMATOCRIT 37.9 % (37.0-47.0); HEMOGLOBIN 12.4 g/dL (12.5-16.0); LYMPH# 2.29 K/mm3 (1.50-4.00); MEAN CELL VOLUME 86 fl (78-100); MEAN CORPUSCULAR HEMOGLOBIN 28 pg (27-31); MEAN CORPUSCULAR HGB CONC 33 g/dL (33-37); MEAN PLATELET VOLUME 9.6 fl (7.4-10.4); MONO # 0.64 K/mm3 (0.20-0.80); NEU # 4.99 K/mm3 (1.40-6.50); PLATELET COUNT 258 K/mm3 (130-400); RED BLOOD COUNT 4.39 M/mm3 (4.10-5.30); RED CELL DISTRIBUTION WIDTH 13.3 % (11.5-14.5); WHITE BLOOD COUNT 8.2 K/mm3 (4.8-10.8)
[2024-11-20 07:19] VITALS: BP 143/70
[2024-11-20 07:27] LABS: ALBUMIN 3.6 g/dL (3.5-5.0)
[2024-11-20 07:28] LABS: CALCIUM 9.4 mg/dL (8.3-10.5)
[2024-11-20 07:29] LABS: TOTAL PROTEIN 7.1 g/dL (6.4-8.3)
[2024-11-20 07:31] LABS: TOTAL BILIRUBIN 0.5 mg/dL (0.2-1.2)
--- NOTE | 2024-11-20 08:20 | NUR ---
Patient sitting up in recliner with feet elevated. Edema BLE, non-pitting in thighs. BLE below knees pitting +3. Pending order for wound consult. Dressings on feet to below knee in place. Left dressing slightly curling down at the top. Alert and oriented x 4. Denies pain. Ambulates with walker SBA. Pannus red and irritated. BP 143/70 this morning.
[2024-11-20] MEDS ORDERED: Fluticasone Nasal 50 MCG/Spray 16 GM BOTTLE NS SCH (09:00)
[2024-11-20] MEDS ORDERED: PARoxetine HCl 10 MG TAB PO SCH (09:00)
[2024-11-20] MEDS ORDERED: Empagliflozin 25 MG TAB PO SCH (09:00)
[2024-11-20] MEDS ORDERED: Losartan 25 MG TAB PO SCH (09:00)
[2024-11-20 11:06] VITALS: BP 122/65
[2024-11-20 15:19] VITALS: BP 130/67
--- NOTE | 2024-11-20 17:54 | NUR ---
Patient alert and oriented throughout the day. Up to bathroom via ambulation and 1 person SBA with a walker. arrived around noon today. Pannus red and powder applied in the morning. Potassium labs drawn this morning and potassium at 5.5 (up from yesterday at 4.9). 1415 parents visiting. No sliding scale insulin required for today. Denies pain throughout the day. IV in left AC had dried blood under dressing from bending arm all day. IV discontinued and new 20G IV placed in Left forearm, flushes well with no phlebitis or infiltration.
--- NOTE | 2024-11-20 18:45 | NUR ---
Report given to SEVEN Renteria.
[2024-11-20 19:00] VITALS: BP 117/63
--- NOTE | 2024-11-20 19:30 | NUR ---
pT WAS AWAKE A/O X4 IN CHAIR, PT DENIES N/V/D, PT DENIES PAIN AT THIS TIME, PT IS ABLE TO MAKE NEEDS KNOWN. PT STATED BILAT LOWER EXTREMITY ITCHING UNDRE LEG WRAPS, PT WAS ASSISTED TO BATHROOM, WITH 4WHEEL WALKER AND GAITBELT. PTS GAIT WAS STABLE AND PT DENIES ANY DIFFICULTY AMBULATING TO BATHROOM. PT HAD A BM AT THIS TIME AND URINARY OUTPUT OF 300 ML IN HAT. PT WAS RETURNED TO THE CHAIR PER HER REQUEST. CHAIR IS ALARMED AND CALL LIGHT WAS LEFT IN PT REACH.
[2024-11-20] MEDS ORDERED: D5 1/4 NS 1,000 ML IV SCH (20:45)
--- NOTE | 2024-11-20 21:34 | NUR ---
as per pt request this rn removed bilateral wound dressings with the approval of woundcare nurse Maryam, mupirocin was placed in bilat legs as per dec. pt denies further needs
[2024-11-20] MEDS ORDERED: Bumetanide 1 MG/4 ML VIAL IV ONE (22:00)
[2024-11-20 23:11] VITALS: BP 130/54
[2024-11-21 02:49] VITALS: BP 148/64
[2024-11-21 07:03] LABS: CALCIUM 8.8 mg/dL (8.3-10.5)
[2024-11-21 07:20] VITALS: BP 133/67
[2024-11-21] MEDS ORDERED: D5 1/4 NS 1,000 ML IV SCH (08:00)
--- NOTE | 2024-11-21 08:15 | NUR ---
Patient alert and oriented upon assessment. Denies pain. BLE edematous, dry, scaly, and firm with +3 to +4 pitting. (leg wraps removed on operations supervisor 2nd shift, per patient request as legs were too itchy.) Lots of dried scabs from excoriation on BLE. Pedal pulses +1 and radial pulses +2. Patient placed on schedule for tomorrow with wound nurse at 1pm to have new leg wraps placed. Lovenox and bumex late for administration because the medications were out and ordered/delivered from [facility]. Pannus is red and irritated. K+ down from 5.5 yesterday to 5.2 today. Colace held per patient request, soft/loose stools.
[2024-11-21 11:16] VITALS: BP 112/59
[2024-11-21 15:10] VITALS: BP 114/64
[2024-11-21] MEDS ORDERED: D5 1/2 NS 1,000 ML IV SCH (17:00)
--- NOTE | 2024-11-21 17:01 | NUR ---
Patient had many visitors throughout the day. Fluids running and IV maintaining patency. Bumex given twice today and patient voiding well. Ambulating SBA to the bathroom. BLE provided mupirocen ointment and without dressings, open to air. Patient scheduled around 1pm for appointment with wound nurse for rewrapping of BLE. [facility] and order placed per VIRGIINE Horta and administrated to patient. This medication is given 1x/week on Sundays. Patient showered this morning before mupirocen applied. Bumex given at 11:30 and at 4:00. First order of bumex was ordered for earlier this morning but medication was out. Medication delivered and Per VIRGINIE Vogel, VORB to give the first dose upon receiving and maintain the 4pm time for the second dose. Patient tolerated well.
--- NOTE | 2024-11-21 18:35 | NUR ---
Report given to SEVEN Renteria.
[2024-11-21 19:00] VITALS: BP 146/53
--- NOTE | 2024-11-21 19:10 | NUR ---
pt in chair awake, a/ox4, pt is able to make needs known, pt denies pain, n/v, pt continues to have diarrhea, colace will be held as per pt request. pt denies further needs at this time, pt was left in chair alarmed with call light in reach.
[2024-11-21 22:41] VITALS: BP 145/62
[2024-11-22 03:17] VITALS: BP 174/53
[2024-11-22 07:00] VITALS: BP 137/65
--- NOTE | 2024-11-22 07:31 | NUR ---
THIS NURSE REVIEWED PTS WEIGHT AND LABS. PTS WEIGHT HAS FLUCTUATED THROUGHOUT HER STAY. PT GAINED A LB SINCE 11/21/24 FROM 264 LBS TO 265 LBS. PTS BEGINNING WEIGHT AT ADMISSION WAS 271 LBS. PTS POTASSIUM HAS FLUCTUATED WELL. ON ADMISSION IT WAS 4.9, THE NEXT RESULT ON 11/20/24 WAS 5.5. LAB RESULT ON 11/21/24 WAS 5.2. PT HAS BUMEX LISTED ON HER DEC.
--- NOTE | 2024-11-22 09:00 | NUR ---
NELLI Duval WOUND CARE NURSE CONSULTED WITH PT ABOUT WOUND CARE. PT WILL BE SEEN TOMORROW.
--- NOTE | 2024-11-22 09:52 | NUR ---
PT IS SITTING UP IN HER RECLINER WITH LEGS ELEVATED. SHE IS A & O X4. THIS NURSE HELD PTS COLACE PT HAS HAD MULTIPLE LOOSE STOOLS, PT REPORTS THIS A NORMAL SIDE EFFECT OF MOUNJARO YESTERDAY 11/21/24. THIS RN HELD PTS SHORT ACTING INSULIN PER SLINDING SCALE, PTS BG RESULTED 156.
[2024-11-22 10:28] LABS: CALCIUM 9.4 mg/dL (8.3-10.5)
[2024-11-22 11:11] VITALS: BP 133/87
[2024-11-22 15:22] VITALS: BP 143/66
--- NOTE | 2024-11-22 16:45 | NUR ---
pt inquired about getting room privliges.
--- NOTE | 2024-11-22 17:56 | NUR ---
PT HAD REPEAT LABS TODAY. POTASSIUM IS WITHIN NORMAL LIMITS. PTS FLUIDS HAVE BEEN D/Cd. PT PLANS TO STAY HERE UNTIL HER 944 APPOINTMENT WITH RADIOLOGY. PT DISCHARGING TOMORROW 11/23/2024.
[2024-11-22 19:00] VITALS: BP 123/73
[2024-11-22 22:39] VITALS: BP 145/66
[2024-11-23 03:24] VITALS: BP 175/71
[2024-11-23 07:15] VITALS: BP 148/63
[2024-11-23] MEDS ORDERED: Losartan 25 MG TAB PO SCH (09:00)
--- NOTE | 2024-11-23 09:30 | NUR ---
PT ALERT AND ORIENTED, SITTING UP IN CHAIR FOR BREAKFAST. DENIES PAIN. ULTRASOUND DID NOT SHOW A CLOT SO PATIENT IS EAGER TO GO HOME TODAY.
[2024-11-23 11:15] VITALS: BP 143/66
--- NOTE | 2024-11-23 12:06 | NUR ---
COBAN 2 COMPRESSION WRAPS APPLIED TO BILATERAL LOWER EXTREMITIES BY Dasha OWENS RN
[2024-11-23] MEDS ORDERED: COZAAR25 M1 PO (13:13)
--- NOTE | 2024-11-23 14:57 | NUR ---
IV AND BLUEPRINT PROCESSOR REMOVED. DISCHARGE INSTRUCTIONS, MEDICATIONS AND FOLLOW UPS DISCUSSED WITH PATIENT, ALL QUESTIONS ANSWERED AND PATIENT VOICES UNDERSTANDING. PT WHEELED OUT TO PRIVATE VEHICLE WITH .
[2024-11-26] MEDS ORDERED: HYDROXYZINE HCL25 M1 PO (11:44)
== END 2024-11-23 15:00 | disposition home or self-care (01) | DRG 199 ==
LOC: ED 12:21 → MED/SURG 14:34
PROVIDERS: Family Medicine; Physician Assistant; ADMIT Family Medicine
DX: I16.0 Hypertensive urgency (principal); L03.116 Cellulitis of left lower limb; E87.5 Hyperkalemia; I10 Essential (primary) hypertension; E11.649 Type 2 diabetes mellitus with hypoglycemia without coma; I89.0 Lymphedema, not elsewhere classified; Z68.42 Body mass index [BMI] 45.0-49.9, adult; I87.2 Venous insufficiency (chronic) (peripheral); K21.9 Gastro-esophageal reflux disease without esophagitis; E83.42 Hypomagnesemia; E78.5 Hyperlipidemia, unspecified; R00.1 Bradycardia, unspecified; F32.A Depression, unspecified; F41.9 Anxiety disorder, unspecified; E66.01 Morbid (severe) obesity due to excess calories; Z79.84 Long term (current) use of oral hypoglycemic drugs; Z79.82 Long term (current) use of aspirin; Z79.4 Long term (current) use of insulin; Z79.899 Other long term (current) drug therapy
CPT/HCPCS: A6452; A9270; J0360; J0612; J1650; J1815; J7120

== ENCOUNTER → 2024-11-19 | Outpatient (CLI) | payer OTHER ==
[~2024-11-19] VITALS: Ht 162.6 cm; Wt 119.6 kg
[2024-11-19 11:12] VITALS: BP 205/72
--- NOTE | 2024-11-19 11:13 | NUR ---
PT HERE FOR WOUND CARE AND LYMPHEDEMA CARE TO BLE. WOUND ON LEFT CRAWFORD IS HEALED. PICTURES TAKEN . CLEANED BLE WITH HIBICLENS AND DEBRISOFT LOLLY. APPLIED ATRAC-TAIN LOTION TO DRY ITCHY SKIN. APPLIED COBAN 2 COMPRESSION WRAPS TO BLE. PT ROD WELL. HAS APPT TO SEE DR GUILLEN TODAY FOR ELEVATED BP. WILL RETURN FOR WOUND CARE ON 11/23
== END ==
LOC: WOUND 10:42
DX: I87.313 Chronic venous hypertension (idiopathic) with ulcer of bilateral lower extremity (principal)
CPT/HCPCS: 18894; 18897; A6452

== ENCOUNTER → 2024-11-26 | Outpatient (CLI) | payer OTHER ==
[~2024-11-26] VITALS: Ht 162.6 cm; Wt 118.5 kg
[~2024-11-26] MED LIST changes: +HYDROXYZINE HCL25 M1 PO
--- NOTE | 2024-11-26 11:15 | NUR ---
Pt presents ambulatory w/ walker for wound care for lymphadema care to [facility]. Pt verbalizes excitement that swelling is much down and has her compression socks on at this time (which she hasn't been able to wear for quite some time. See notes from Candy Michele APRN on care given. Pt assisted with putting on compression socks after care given so no wrinkles in socks. Pt to return as needed. Coke given pt per her request as she is "so thirsty". Pt tolerates care well and leaves facility ambulatory w/ her walker and staff.
[2024-11-26 11:18] VITALS: BP 141/78
== END ==
LOC: WOUND 11:04
DX: I87.2 Venous insufficiency (chronic) (peripheral) (principal); L97.929 Non-pressure chronic ulcer of unspecified part of left lower leg with unspecified severity; L97.919 Non-pressure chronic ulcer of unspecified part of right lower leg with unspecified severity; I89.0 Lymphedema, not elsewhere classified
CPT/HCPCS: 18897

== ENCOUNTER → 2024-11-30 | Outpatient (CLI) | payer OTHER ==
[2024-11-30 09:42] LABS: BASO # 0.03 K/mm3 (0.02-0.10); EOS # 0.29 K/mm3 (0.04-0.40); EOS % 3.6 % (1.0-5.0); HEMATOCRIT 38.8 % (37.0-47.0); HEMOGLOBIN 12.1 g/dL (12.5-16.0); LYMPH# 2.19 K/mm3 (1.50-4.00); MEAN CELL VOLUME 88 fl (78-100); MEAN CORPUSCULAR HEMOGLOBIN 27 pg (27-31); MEAN CORPUSCULAR HGB CONC 31 g/dL (33-37); MEAN PLATELET VOLUME 9.6 fl (7.4-10.4); MONO # 0.65 K/mm3 (0.20-0.80); NEU # 4.81 K/mm3 (1.40-6.50); PLATELET COUNT 295 K/mm3 (130-400); RED BLOOD COUNT 4.41 M/mm3 (4.10-5.30); RED CELL DISTRIBUTION WIDTH 13.3 % (11.5-14.5)
[2024-11-30 09:47] LABS: CALCIUM 9.8 mg/dL (8.3-10.5)
== END ==
LOC: LAB 09:15
PROVIDERS: Internal Medicine
DX: I10 Essential (primary) hypertension (principal)

== ENCOUNTER → 2024-12-15 | Outpatient (CLI) | payer OTHER | LOC: VAS 15:57 → RAD 16:30 | DX: R06.00 Dyspnea, unspecified (principal) ==

== ENCOUNTER → 2025-02-01 | Outpatient (CLI) | payer OTHER ==
[2025-02-01 19:15] LABS: BASO # 0.04 K/mm3 (0.02-0.10); EOS # 0.28 K/mm3 (0.04-0.40); HEMATOCRIT 34.8 % (37.0-47.0); HEMOGLOBIN 11.3 g/dL (12.5-16.0); LYMPH# 2.06 K/mm3 (1.50-4.00); MEAN CELL VOLUME 87 fl (78-100); MEAN CORPUSCULAR HEMOGLOBIN 28 pg (27-31); MEAN CORPUSCULAR HGB CONC 33 g/dL (33-37); MEAN PLATELET VOLUME 9.7 fl (7.4-10.4); MONO # 0.69 K/mm3 (0.20-0.80); NEU # 6.21 K/mm3 (1.40-6.50); PLATELET COUNT 246 K/mm3 (130-400); RED BLOOD COUNT 4.01 M/mm3 (4.10-5.30); WHITE BLOOD COUNT 9.3 K/mm3 (4.8-10.8)
[2025-02-01 19:25] LABS: ALBUMIN 3.9 g/dL (3.5-5.0)
[2025-02-01 19:28] LABS: TOTAL PROTEIN 7.7 g/dL (6.4-8.3)
[2025-02-01 19:29] LABS: TOTAL BILIRUBIN 0.4 mg/dL (0.2-1.2)
[2025-02-01 19:35] LABS: MAGNESIUM 1.75 mg/dL (1.60-2.60)
== END ==
LOC: LAB 18:56
PROVIDERS: Internal Medicine
DX: I10 Essential (primary) hypertension (principal); I25.10 Atherosclerotic heart disease of native coronary artery without angina pectoris; K90.9 Intestinal malabsorption, unspecified; E11.9 Type 2 diabetes mellitus without complications